=== PATIENT | male | born 1955 | race African-American/Black ===

== ENCOUNTER 2024-06-12 09:53 | Outpatient (CLI) | payer MEDICARE, MEDICAID, SELFPAY ==
[2024-06-12 10:49] LABS: Hematocrit 38.4 % (42.0-52.0); Hemoglobin 12.6 g/dL (14.0-18.0); Mean Corpuscular HGB Conc 32.8 g/dl (32-36); Mean Corpuscular Hemoglobin 27.4 pg (26-34); Mean Corpuscular Volume 83.5 fl (80-100); Mean Platelet Volume 9.8 fl (7.4-10.4); Platelet Count Result 323 k/mm3 (150-375); Red Cell Distribution Width 13.9 % (11.5-14.5); White Blood Count 10.5 K/mm3 (4.5-10.0)
[2024-06-12 10:52] LABS: Creatinine Urine 61.3 mg/dL; Total Protein Urine Random 38 mg/dL; Ur Ttl Prot Creatinine Ratio 0.62 mg/mg (0-0.20)
[2024-06-12 10:59] LABS: Alanine Aminotransferase 52 U/L (6-50); Albumin Level 4.5 g/dL (3.5-5.1); Alkaline Phosphatase 60 U/L (38-126); Anion Gap 10 mmol/L (4-12); Aspartate Amino Transferase 40 U/L (17-59); Bilirubin,Total 0.3 mg/dL (0.2-1.3); Blood Urea Nitrogen 25 mg/dL (9-20); Calcium 9.4 mg/dL (8.4-10.2); Carbon Dioxide 23 mmol/L (22-30); Chloride 103 mmol/L (98-107); Cholesterol 110 mg/dL (0-200); Estimated Glomerular Filt Rate 53; Glucose 173 mg/dL (65-110); HDL Direct 49 mg/dL; Phosphorus 3.3 mg/dL (2.5-4.5); Potassium 4.5 mmol/L (3.4-5.0); Sodium 136 mmol/L (137-145); Triglycerides 87 mg/dL (<150)
[2024-06-12 11:10] LABS: LDL Cholesterol Direct 37 mg/dL
[2024-06-12 11:30] LABS: Prostate Specific Antigen 6.9 ng/mL (< OR = 4.0)
== END 2024-06-12 09:54 | disposition home or self-care (01) ==
LOC: ANHLAB 10:01
PROVIDERS: PCP Family Medicine; Referring Provider Family Medicine; Visit Provider Internal Medicine Nephrology
DX: E11.22 Type 2 diabetes mellitus with diabetic chronic kidney disease (principal); I12.9 Hypertensive chronic kidney disease with stage 1 through stage 4 chronic kidney disease, or unspecified chronic kidney disease; N18.32 Chronic kidney disease, stage 3b; Z76.89 Persons encountering health services in other specified circumstances; Z12.5 Encounter for screening for malignant neoplasm of prostate; E78.5 Hyperlipidemia, unspecified
CPT/HCPCS: 36415; 80053; 80061; 82570; 84100; 84153; 84156; 85027; G0103

== ENCOUNTER 2024-09-06 06:44 | Outpatient (CLI) | payer MEDICARE, MEDICAID, SELFPAY ==
[2024-09-06 07:40] LABS: Albumin Level 4.4 g/dL (3.5-5.1); Anion Gap 10 mmol/L (4-12); Blood Urea Nitrogen 20 mg/dL (9-20); Carbon Dioxide 24 mmol/L (22-30); Chloride 100 mmol/L (98-107); Estimated Glomerular Filt Rate 58; Glucose 148 mg/dL (65-110); Phosphorus 3.3 mg/dL (2.5-4.5); Potassium 4.5 mmol/L (3.4-5.0); Sodium 134 mmol/L (137-145)
[2024-09-06 08:21] LABS: Parathyroid Intact 91.3 pg/mL (14.5-75.2)
[2024-09-06 08:27] LABS: Vitamin D 25 Hydroxy 37.8 ng/mL
[2024-09-06 09:04] LABS: Creatinine Urine 29.4 mg/dL; Total Protein Urine Random 40 mg/dL; Ur Ttl Prot Creatinine Ratio 1.36 mg/mg (0-0.20)
== END 2024-09-06 06:45 | disposition home or self-care (01) ==
PROVIDERS: PCP Family Medicine; Visit Provider Internal Medicine Nephrology
DX: I12.9 Hypertensive chronic kidney disease with stage 1 through stage 4 chronic kidney disease, or unspecified chronic kidney disease (principal); E11.22 Type 2 diabetes mellitus with diabetic chronic kidney disease; N18.32 Chronic kidney disease, stage 3b; N25.81 Secondary hyperparathyroidism of renal origin; E55.9 Vitamin D deficiency, unspecified
CPT/HCPCS: 36415; 80069; 82306; 82570; 83970; 84156

== ENCOUNTER 2024-10-15 09:46 | Emergency (ER) | payer MEDICARE, MEDICAID, SELFPAY ==
--- NOTE | ~2024-10-15 | XR_ITS ---
EXAMINATION: XR knee RT min 4V DATE: 10/15/2024 11:25 INDICATION: Distal right knee pain post fall TECHNIQUE: Anteroposterior, 2 oblique and crosstable lateral views of the right knee were obtained COMPARISON: None. FINDINGS: Status post right jpmrh-oim-srqi amputation with smoothly corticated osteotomy margins. Alignment is normal. No fracture. Joint spaces are relatively preserved on nonweightbearing imaging. Tiny marginal ossified at the proximal margin of the patella. Enthesophytes at the patellar insertion of the lee lar and distal quadriceps tendons. No joint effusion/layering lipohemarthrosis. Vascular calcificatio ns at the distal thigh and proximal calf. There is soft tissue swelling with subcutaneous edema at th e distal aspect of the stump. IMPRESSION: 1. Right dqqge-ccw-avhg amputation. No right knee joint effusion or acute osseous abnormality. Reviewed, dictated and finalized at location B. OR IMPRESSION: 1. Right eoivi-ray-njux amputation. No right knee joint effusion or acute osseo us abnormality.
[2024-10-15 09:58] VITALS: BP 158/75; PULSE 98; RESP 20; TEMP 36.7; O2SAT 100
--- NOTE | 2024-10-15 10:02 | ED_ITS ---
HPI - Fall General Chief Complaint: Fall Stated Complaint: fell, right leg pain Time Seen by Provider: 10/15/24 09:49 History of Present Illness HPI Narrative: Pt putting on prosthetic right leg and fell and landed on stump and now has pain to stump. Pt has firm area where he landed. Pt says tylenol is helping with pain. Related Data Home Medications ?Medication ?Instructions ?Recorded ?Confirmed ?Last Taken ?Type aspirin 81 mg tablet,delayed 81 mg PO DAILY 05/22/24 09/10/24 Unknown History release ferrous sulfate 325 mg (65 mg 325 mg PO DAILY 05/22/24 09/10/24 Unknown History iron) tablet multivitamin with minerals-folic 1 tablet PO DAILY 05/22/24 09/10/24 Unknown History acid 400 mcg-lycopene 370 mcg tablet (One-A-Day Men's 50 Plus) Allergies Allergy/AdvReac Type Severity Reaction Status Date / Time No Known Allergies Allergy Verified 10/15/24 09:57 Review of Systems Review of Systems: All systems reviewed & are unremarkable except as noted in HPI and below PMFSH Past Medical History Medical History Hyperlipidemia Anemia HTN (hypertension) Kidney disease Diabetes Asthma Surgical History Surgical History Hx of right BKA Family History Family History Other Unknown family medical history Social History Social History Smoking status: Never smoker Alcohol intake: never Substance use type: does not use Living arrangements: with family Spiritual care concerns: No Exam Const: General: healthy appearing and no acute distress Nutritional Appearance: well nourished Orientation/consciousness: patient oriented x3 Limitations: no limitations Neck: Neck: normal visual inspection Resp: Effort & Inspection: normal respiratory effort Auscultation: clear to auscultation bilaterally Cardio: Rate: regular rate Rhythm: regular rhythm GI: GI Palp: Yes Soft to palpation and No Tenderness to palpation present (GI) Auscultation: normal bowel sounds Skin: General skin exam: normal color Wounds: no wounds Neuro: General: patient oriented x3, moves all extremities, no focal motor deficits and CN's II-XI intact bilaterally Speech: normal speech Extrem: Other: small area of firness on stump seems like hematoma, no abscess or warmth. Psych: Mental Status: mental status grossly normal Affect: normal affect Attitude: cooperative Course Vital Signs Vital signs: Vital Signs Temperature 98.0 F 10/15/24 09:58 Pulse Rate 98 10/15/24 09:58 Respiratory Rate 20 10/15/24 09:58 Blood Pressure 158/75 H 10/15/24 09:58 Pulse Oximetry 100 10/15/24 09:58 Oxygen Delivery Room Air 10/15/24 09:58 Temperature 98.0 F 10/15/24 09:58 Pulse Rate 98 10/15/24 09:58 Respiratory Rate 20 10/15/24 09:58 Blood Pressure 158/75 H 10/15/24 09:58 Pulse Oximetry 100 10/15/24 09:58 Oxygen Delivery Room Air 10/15/24 09:58 MDM - Fall MDM Narrative Medical decision making narrative: pt fell and struck stump has swollen area that feels like a small hematoma but will get x ray to exclude fx. x rays neg. home on tylenol. Discharge Plan Discharge Clinical Impression: Hematoma Patient Disposition: Home, Self-Care Condition: Stable Instructions: Antibiotic Form, Hematoma (ED) Patient Language: East Timorese Prescriptions: No Action ketoconazole 2 % shampoo 1 applic topical 3XW Qty: 120 0RF ketoconazole 2 % cream 1 applic topical BID Qty: 60 0RF hydrocortisone 1 % cream 1 applic topical BID PRN (Reason: rash hand) Qty: 453.6 0RF ferrous sulfate 325 mg (65 mg iron) tablet 325 mg PO DAILY aspirin 81 mg tablet,delayed release (DR/EC) 81 mg PO DAILY One-A-Day Men's 50 Plus 400-370 mcg tablet 1 tablet PO DAILY metoprolol tartrate 25 mg tablet 25 mg PO DAILY Qty: 90 1RF Januvia 100 mg tablet 100 mg PO DAILY Qty: 90 1RF sodium,potassium,mag sulfates [Suprep Bowel Prep Kit] 17.5-3.13-1.6 gram recon soln See Rx Instructions PO .COMPLEX Qty: 354 0RF Rx Instructions: Take as directed per the written instructions that were mailed to you. atorvastatin 40 mg tablet 40 mg PO DAILY Qty: 90 1RF amlodipine 10 mg tablet 10 mg PO DAILY Qty: 90 1RF Follow-up/Referrals: Eran Amezquita MD [Primary Care Provider] -
--- OUTSIDE RECORDS SUMMARY | 2024-10-15 10:46 | XMS_ITS ---
Author Organization 1 OF George keene [facility] Address [address] [place] [address] Care Team Providers Care Wax Bleacher Name Role Phone Lakia Shore Primary Care Provider Rebeca Barrera Unavailable [phone] REASON FOR VISIT DFC (Diabetic foot care) Encounters Encounter Location Date Provider Diagnosis 1 OF George Marte [facility] [address] [place] [address] 04/25/2024 Rebeca Sparrow Onychogryphosis L60. 2 ; Type 2 diabetes mellitus with diabetic polyneuropathy, unspecified whether buttermilk drier operator insulin use E11.42 and Callus of [...] diabetes mellitus with diabetic polyneuropathy, unspecified whether buttermilk drier operator insulin use (ICD-10 - E11.42) 04/25/2024 Callus [...] tact office PRN with any concerns., Reason: Procedure Notes * Category Sub-Category Detail Notes PALLIATIVE FOOT CARE: Callus paring: (91458) Si ngle callus as noted above reduced with a sterile scalpel blade, Nail debride (32832): Debridement of fiv e or less mycotic and/or hypertrophic nails, utilizing manual and electric debridement the affected nails were reduced the nails in length and thickness with curettage of debris from nail margins performed as needed. Nail thickness reduced by:, 10% Progress Notes * Linda ROBBINSOB:1955 (68 yo M)Acc No.[id number]:04/25/2024 Progress Note Patient: Bradly DUFFY Provider: Jose Martin Sparrow DPM :1955 A ge:68 Y S ex:Male Date:04/25/2024 Address:[address] [place] [address] Pcp:Lakia Shore Subjective: * Chief Complaints: * 1 . DFC (Diabetic foot care). * HPI: M A assisting with visit:: HPI/Rooming: . ..... P [facility] reason for visit:: Diabetic Foot [...] diabetes mellitus with diabetic polyneuropathy, unspecified whether m[facility]p insulin use - E11.42 (Primary) 3 . C allus of foot - L84 Plan: * Treatment: * Procedures: P ALLIATIVE FOOT CARE:: Callus paring: ( 02762) Single callus as noted above reduced with a sterile scalpel blade,. Nail debride (21728): D ebridement of five or less mycotic and/or hypertrophic nails, utilizing manual and electric debridement the affected nails were reduced the nails in length and thickness with curettage of debris from nail margins performed as needed. Nail thickness reduced by:, 10%. * Procedure Codes: 1 1055 TRIM SKIN LESION, Modifiers: Q7 , 77454 DEBRIDE NAIL, 1-5, Modifiers: Q7 , 59 * Follow Up: 9 -10 weeks or contact office PRN with any concerns. * Images: * Electronic signature of Radha Sparrow DPM on 10/15/2024 at 10:46 AM PORTFOLIO ARCHITECT Sign off status: Pending * Provider: Jose Martin Sparrow DPM Date: 0 04/25/2024 Generated for Austin ng/Faroelg/eTransmitting on: 0 10/15/2024 10:46 AM PORTFOLIO ARCHITECT History and Physical Notes * HPI (History [...]
--- OUTSIDE RECORDS SUMMARY | 2024-10-15 10:46 | XMS_ITS ---
Author Organization 1 OF George keene [facility] Address [address] [place] [address] Care Team Providers Care Diploma Maker Name Role Phone Lakia Shore Primary Care Provider Rebeca Barrera Unavailable [phone] REASON FOR VISIT DFC (Diabetic foot care) Encounters Encounter Location Date Provider Diagnosis 1 [facility] [address] [place] [address] 07/10/2024 Rebeca Sparrow Onychogryphosis L60. 2 ; Type 2 diabetes mellitus with diabetic polyneuropathy, unspecified whether terminal operator insulin use E11.42 and Callus [...] diabetes mellitus with diabetic polyneuropathy, unspecified whether terminal operator insulin use (ICD-10 - E11.42) 07/10/2024 Callus [...] Detail Notes PALLIATIVE FOOT CARE: Callus paring: (65131) Si ngle callus as noted above reduced with a sterile scalpel blade, Nail debride (56083): Debridement of fiv e or less mycotic and/or hypertrophic nails, utilizing manual and electric debridement the affected nails were reduced the nails in length and thickness with curettage of debris from nail margins performed as needed. Nail thickness reduced by:, 10% Progress Notes * Linda ROBBINSOB:1955 (68 yo M)Acc No.[id number]:07/10/2024 Progress Note Patient: Bradly DUFFY Provider: Jose Martin Sparrow DPM :1955 A ge:68 Y S ex:Male Date:07/10/2024 Address:[address] [place] [address] Pcp:Lakia Shore Subjective: * Chief Complaints: * [...] diabetes mellitus with diabetic polyneuropathy, unspecified whether usp insulin use - E11.42 (Primary) 3 . C allus of foot - L84 Plan: * Treatment: * Procedures: P ALLIATIVE FOOT CARE:: Callus paring: ( 48827) Single callus as noted above reduced with a sterile scalpel blade,. Nail debride (61442): D ebridement of five or less mycotic and/or hypertrophic nails, utilizing manual and electric debridement the affected nails were reduced the nails in length and thickness with curettage of debris from nail margins performed as needed. Nail thickness reduced by:, 10%. * Procedure Codes: 1 1055 TRIM SKIN LESION, Modifiers: Q7 , 45242 DEBRIDE NAIL, 1-5, Modifiers: Q7 , 59 * Follow Up: 9 -10 weeks or contact office PRN with any concerns. * Images: * Electronic signature of Radha Sparrow DPM on 10/15/2024 at 10:46 AM BRANCH ACCOUNT MANAGER Sign off status: Pending * Provider: Jose Martin Sparrow DPM Date: 09/09/2023 Generated for Austin sprague/Faxing/eTransmitting on: 0 10/15/2024 10:46 AM BRANCH ACCOUNT MANAGER History and Physical Notes * HPI (History [...]
--- OUTSIDE RECORDS SUMMARY | 2024-10-15 10:46 | XMS_ITS | Clinical Summary ---
Author Organization [facility] Address [address] [place] [address] Phone Care Team Providers Care Supervisor Compressed Yeast Name Role Phone Lakia Shore MD Primary Care Provider Allergies No known active allergies Medications Medication Sig Dispensed Refills Start Date End Date Status amLODIPine (NORVASC) 10 MG tablet Take 10 mg by mouth 1 (one) time each day Active aspirin (ST NATALI) 81 MG EC tablet Take 81 mg by mouth 1 (one) time each day Active atorvastatin (LIPITOR) 40 MG tablet Take 40 mg by mouth every night Active brimonidine-timolol (COMBIGAN) 0.2-0.5 % ophthalmic solution Administer 1 drop into both eyes every 12 (twelve) hours Active ferrous sulfate 325 (65 Fe) MG EC tablet Take 325 mg by mouth 2 (two) times a day before meals Active hydroCHLOROthiazide (HYDRODIURIL) 25 MG tablet Take 25 mg by mouth 1 (one) time each day Active SITagliptin (JANUVIA) 100 MG tablet Take 100 mg by mouth 1 (one) time each day Active metoprolol tartrate (LOPRESSOR) 25 MG tablet Take 25 mg by mouth 2 (two) times a day Active Active Problems Problem Noted Date Diagnosed Date Type 2 diabetes mellitus with complication 01/19 Ulcer of toe 08/24/2022 Status post BKA 06/08/2022 Stage 3a chronic kidney disease 04/27/2022 Hyperkalemia 04/26/2022 Essential hypertension 04/26/2022 Resolved Problems Problem Noted Date Diagnosed Date Resolved Date Hypertensive renal disease 06/10/2022 0 01/19/2023 Anemia 04/26/2022 01/19/2023 Hyperlipidemia 04/26/2022 06/10/2022 Social History Tobacco Use Types Packs/Day Years Used Date Smoking Tobacco: Never Smokeless Tobacco: Never Tobacco Cessation:Counseling Given: Not Answered Alcohol Use Standard Drinks/Week Comments Never 0 (1 standard drink = 0.6 oz pur e alcohol) Sex and Gender Information Value Date Recorded Sex Assigned at Not on file Gender Identity Not on file Sexual Orientation Not on file Last Filed Vital Signs Vital Sign Reading Time Taken Comments Blood Pressure 129/71 09/19/2023 1:23 PM TOUR COORDINATOR Pulse 92 09/19/2023 1:23 PM TOUR COORDINATOR Temperature - - Respiratory Rate - - Oxygen Saturation - - Inhaled Oxygen Concentration - - Weight 85.3 kg (188 lb) 09/19/2023 1:23 PM TOUR COORDINATOR Height 172.7 cm (5' 8 ) 09/19/2023 1:23 PM TOUR COORDINATOR Body Mass Index 28.59 09/19/2023 1:23 PM TOUR COORDINATOR Plan of Treatment Health Maintenance Due Date Last Done Comments Pneumococcal PPSV23/PCV13 65 + Years / High and Highest Risk (1 of 4 - PCV) 11/16/1963 Diabetic Foot Exam 11/16/1967 Ophthalmology Exam 11/16/1967 Influenza Vaccine (#1) 2024 Care Teams Supervisor Compressed Yeast Relationship Specialty Start Date End Date Lakia Shore MD [address] [place] [address] PCP - General 08/24/22
--- OUTSIDE RECORDS SUMMARY | 2024-10-15 10:47 | XMS_ITS | Patient Health Record ---
Author Organization 1 OF George keene [facility] Address [address] [place] [address] Care Team Providers Care Reception Specialist Name Role Phone Lakia Shore Primary Care Provider Rebeca Barrera Unavailable [phone] Allergies No Known Allergies Reason For Referral No Information Medications Medication SIG (Take, Route, Fr equency, Duration) Notes Start Date End Date Status Metoprolol Succinate Active Atorvastatin Calcium Active Brimonidine Tartrate Active Januvia Active metFORMIN HCl Active amLODIPine Besylate Active Aspirin Active Social History Tobacco Use: Social History Observation Description Date Details (start date - stop date) Never Smoker NA - NA Tobacco Use/Smoking Question Answer Notes Are you a nonsmoker Problems Problem Type SNOMED Code ICD Code Onset Dates Problem Status W/U Status Risk Notes Problem 29420741 Gait instability (R26.81) Active confirmed Problem 966429052 Skin ulcer of toe of left foot with fat layer exposed (L97.522) Active confirmed Problem 39068506 Type 2 diabetes mellitus with diabetic polyneuropathy, unspecified whether half-way insulin use (E11.42) Active confirmed Vital Signs Height 68 in 05/01/2024 Weight 194 lbs 05/01/2024 BMI 29.49 kg/m2 05/01/2024 Encounters Encounter Location Date Provider Diagnosis 1 OF [facility] [address] [place] [address] 11/09/2023 Rebeca Sparrow Onychogryphosis L60. 2 ; Type 2 diabetes mellitus with diabetic polyneuropathy, unspecified whether half-way insulin use E11.42 and Callus of foot L84 1 OF [facility] [address] [place] [address] 12/12/2023 Rebeca Sparrow Type 2 diabetes arun itus with diabetic polyneuropathy, unspecified whether half-way insulin use E11.42 1 OF George Marte [facility] [address] [place] [address] 01/18/2024 Rebeca Gonsaleza Onychogryphosis L60. 2 ; Type 2 diabetes mellitus with diabetic polyneuropathy, unspecified whether continuous churn buttermaker insulin use E11.42 and Callus of foot L84 1 OF George Marte [facility] [address] [place] [address] 01/18/2024 Rebeca Gonsaleza Type 2 diabetes arun itus with diabetic polyneuropathy, unspecified whether half-way insulin use E11.42 1 OF [facility] [address] [place] [address] 05/01/2024 Rebeca Gonsaleza Onychogryphosis L60. 2 ; Type 2 diabetes mellitus with diabetic polyneuropathy, unspecified whether continuous churn buttermaker insulin use E11.42 and Callus of foot L84 1 OF George [facility] [address] [place] [address] 12/15/2023 Rebeca Sparrow 1 OF [facility] [address] [place] [address] 01/05/2024 Rebeca Gonsaleza Assessments Encounter Date Diagnosis (ICD Code) Assessment Notes Treatment Notes Treatment Clinical Notes Section Notes 11/09/2023 Onychogryphosis (ICD-10 - L60.2) Considering the associated comorbidities and physical exam findings today, this patient is at substantial risk of developing serious foot complications in the absence of regular and professional palliative foot care. 12/12/2023 Type 2 diabetes mellitus with diabetic polyneuropathy, unspecified whether continuous churn buttermaker insulin use (ICD-10 - E11.42) 01/18/2024 Onychogryphosis (ICD-10 - L60.2) Considering the associated comorbidities and physical exam findings today, this patient is at substantial risk of developing serious foot complications in the absence of regular and professional palliative foot care. 01/18/2024 Type 2 diabetes mellitus with diabetic polyneuropathy, unspecified whether continuous churn buttermaker insulin use (ICD-10 - E11.42) 05/01/2024 Onychogryphosis (ICD-10 - L60.2) Considering the associated comorbidities and physical exam findings today, this patient is at substantial risk of developing serious foot complications in the absence of regular and professional palliative foot care. 05/01/2024 Type 2 diabetes mellitus with diabetic polyneuropathy, unspecified whether half-way insulin use (ICD-10 - E11.42) 01/18/2024 Type 2 diabetes mellitus with diabetic polyneuropathy, unspecified whether half-way insulin use (ICD-10 - E11.42) 11/09/2023 Type 2 diabetes mellitus with diabetic polyneuropathy, unspecified whether half-way insulin use (ICD-10 - E11.42) 11/09/2023 Callus of foot (ICD-10 - L84) 01/18/2024 Callus of foot (ICD-10 - L84) 05/01/2024 Callus of foot (ICD-10 - L84) Plan Of Treatment No Information Insurance Providers Payer Name Payer Address Payer Phone Subscriber Number Group Number Insured Name Patient Relationship to Insured Coverage Start Date Coverage End Date [employer] [address] [address] [place] [address] [id number] Bradly Burnett Self - patient is the insured [facility] [address] [address] [place] [address] [id number] Bradly Burnett Self - patient is the insured Medical (General) History Medical History History ICD Code diabetes, high cholesterol, high blood p ressure, kidney disease Surgical History Surgery Date(Month/Year) right BKA
--- OUTSIDE RECORDS SUMMARY | 2024-10-15 10:47 | XMS_ITS | Encounter Summary ---
Author Organization [facility] Address [address] [place] [address] Care Team Providers Care Railway Signal Operator Name Role Phone None, Provider Primary Care Provider Lakia Falk MD Primary Care Provider Reason for Referral * Imaging (Routine) - Closed Specialty Diagnoses / Procedures Referred By Angelica worthington Referred To Contact RADIOLOGY Diagnoses CKD (chronic kidney disease), symptom management only Procedures US RETROPERITONEAL COMP US ABD COMPLETE Kristian Lunsford MD [address] [place] [address] Dr [address] [place] [address] Phone: tel: fax: Referral ID Status Reason Start Date Expiration Date Visits Re quested Visits Authorized [id number] Closed 05/11/2022 06/10/2023 1 1 * Imaging (Routine) - Closed Specialty Diagnoses / Procedures Referred By Angelica worthington Referred To Contact RADIOLOGY Diagnoses Essential hypertension, malignant Procedures USV ABD PEL OR RETRO DUPLEX COMP Kristian Lunsford MD [facility] [place] [address] Phone: tel: fax: Referral ID Status Reason Start Date Expiration Date Visits Re quested Visits Authorized [id number] Closed 05/11/2022 06/10/2023 1 1 Encounter Details Date Type Department Care Team (Late st Contact Info) Description 05/11/2022 Community Orders [facility] Kristian Lunsford MD [address] [place] [phone] Social History Tobacco Use Types Packs/Day Years Used Date Smoking Tobacco: Never Smokeless Tobacco: Never Alcohol Use Standard Drinks/Week Comments Never 0 (1 standard drink = 0.6 oz pur e alcohol) AUDIT-C Answer Date Recorded Q1: How often do you have a drink containing alc ohol? Never 11/19/2020 Average Number of Drinks Not on file 021 Frequency of Binge Drinking Not on file 03/2021 Sex and Gender Information Value Date Recorded Sex Assigned at Not on file Legal Sex Male 5:49 PM CDT Gender Identity Not on file Sexual Orientation Not on file COVID-19 Exposure Response Date Recorded In the last 10 days, have yo u been in contact with someone who was confirmed or suspected to have Coronavirus/COVID-19? No / Unsure 04/14/2022 10:23 AM CDT documented as of this encounter Functional Status * RETIRED Are you deaf or do you have serious difficulty hearing Answer Date of Assessment Author Status No 04/09/2022 3:28 PM CDT Activ e * RETIRED Are you blind or do you have serious difficulty seeing, even when wearing glasses? Answer Date of Assessment Author Status No 04/09/2022 3:00 PM CDT Activ e * Do you have serious difficulty walking or climbing stairs? Answer Date of Assessment Author Status No 04/09/2022 3:00 PM CDT Lakia Cesar RN Active * Do you have difficulty dressing or bathing? Answer Date of Assessment Author Status No 04/09/2022 3:00 PM CDT Lakia Cesar RN Active * Because of a physical, mental, or emotional condition, do you have difficulty doing errands alone such as visiting a doctor's office or shopping? Answer Date of Assessment Author Status No 04/09/2022 3:00 PM CDT Lakia Cesar RN Active documented as of this encounter Mental Status * Because of a physical, mental, or emotional condition, do you have serious difficulty concentrating, remembering, or making decisions? Answer Entry Date Author Status No 04/09/2022 3:00 PM CDT Lakia Cesar RN Active documented in this encounter Plan of Treatment Not on file documented as of this encounter Goals Goal Patient Goal Type Associated Problems Recent Progress Patient-Stated? Author Health - patient able to perform ADLs independently Lifestyle No Landy Escobar RN documented as of this encounter Results * USV ABD PEL OR RETRO DUPLEX COMP (06/09/2022 10:29 AM CDT) Anatomical Region Laterality Modality NA Vascular Ultraso und 06/09/2022 9:58 AM CDT Narrative 06/09/2022 6:55 PM CDT RENAL-MESENTERIC DUPLEX IMAGING VASCULAR LAB Pat.Name: BRADLY ROBBINS Pat.ID: [id number] St.Date: 06/09/2022 Exam Time: 9:58:00 AM Study Type:ZACH VS Renal Mesenteric Duplex BONILLA Age: 6 1955,66Y Sex: MALE Sonogrphr: JIN Gutierrez Pat. Stat.:Outpatient History / Clinical: HTN; PMH- asa, HTN, HLD, DM, RT BKA, no prior Procedures: Raya scale, Color Doppler imaging, Doppler Spectral Analysis Race: B ++++++++++++++++++++++++++++++++++++ SUMMARY: ++++++++++++++++++++++++++++++++++++ Laurie Renal artery Stenosis Criteria: < 60% = PSV >180 with RAR <3.5; >60% = PSV >180 with RAR >3.5; (RI >.80 = abnormal, kidney dz.) Right renal artery no evident narrowing, normal velocity, with RAR 1.01 . RI 0.9, with kidney length within normal range. Left renal artery no evident narrowing, limited views, normal velocity, with RAR 0.454 . RI 0.81, with kidney length within normal range. Renal veins are patent bilaterally. Aorta limited views, no evident narrowing, bi-triphasic. Low, <40 degree, Doppler measurement angle, which significantly decreases the velocity calculations obtained. CONCLUSION: Right renal artery is normal with Renal/Aorta Ratio of 1.01 . Kidney size, Resistive Index suggests parenchymal disease.. Left renal artery is normal with Renal/Aorta Ratio of 0.454 . Kidney size, Resistive Index suggests good kidney preservation. ++++++++++++++++++++++++++++++++++++ FINDINGS: ++++++++++++++++++++++++++++++++++++ ++++++++++++++++++++++++++++++++++++ MEASUREMENTS: ++++++++++++++++++++++++++++++++++++ AO-ILIAC Left Kidney Kidney Size 12.1 cm Right Kidney Kidney Size 12.3 cm RENAL ART Right Origin Origin PSV 99.1 cm/s Right Prox Prox PSV 96 cm/s Right Mid Mid PSV 124 cm/s Right Distal Distal PSV 88.1 cm/s Right RAR RAR PSV 1.01 Left Origin Origin PSV 55.9 cm/s Left Prox Prox PSV 51.5 cm/s Left Mid Mid PSV 52.8 cm/s Left Distal Distal PSV 54 cm/s Left RAR RAR PSV 0.454 PARENCHYMA Left Lower Pole Segmental Artery Lower Pole Segm 0.8 Left Upper Pole Segmental Artery Upper Pole Segm 0.81 Right Lower Pole Segmental Artery Lower Pole Segm 0.9 Right Upper Pole Segmental Artery Upper Pole Segm 0.83 DOPPLER Supra AO Supra AO PSV 123 cm/s Signed 06/09/2022 06:55 PM Tony Kruger M.D. Procedure Note Tony Kruger MD - 06/09/2022 RENAL-MESENTERIC DUPLEX IMAGING VASCULAR LAB Pat.Name: BRADLY ROBBINS Pat.ID: [id number] .Date: 06/09/2022 Exam Time: 9:58:00 AM Study Type:ZACH VS Renal Mesenteric Duplex BONILLA Age: 6 1955,66Y Sex: MALE Sonogrphr: JIN Gutierrez Pat. Stat.:Outpatient History / Clinical: HTN; PMH- asa, HTN, HLD, DM, RT BKA, no prior Procedures: Raya scale, Color Doppler imaging, Doppler Spectral Analysis Race: B ++++++++++++++++++++++++++++++++++++ SUMMARY: ++++++++++++++++++++++++++++++++++++ Laurie Renal artery Stenosis Criteria: < 60% = PSV >180 with RAR <3.5; >60% = PSV >180 with RAR >3.5; (RI >.80 = abnormal, kidney dz.) Right renal artery no evident narrowing, normal velocity, with RAR 1.01 . RI 0.9, with kidney length within normal range. Left renal artery no evident narrowing, limited views, normal velocity, with RAR 0.454 . RI 0.81, with kidney length within normal range. Renal veins are patent bilaterally. Aorta limited views, no evident narrowing, bi-triphasic. Low, <40 degree, Doppler measurement angle, which significantly decreases the velocity calculations obtained. CONCLUSION: Right renal artery is normal with Renal/Aorta Ratio of 1.01 . Kidney size, Resistive Index suggests parenchymal disease.. Left renal artery is normal with Renal/Aorta Ratio of 0.454 . Kidney size, Resistive Index suggests good kidney preservation. ++++++++++++++++++++++++++++++++++++ FINDINGS: ++++++++++++++++++++++++++++++++++++ ++++++++++++++++++++++++++++++++++++ MEASUREMENTS: ++++++++++++++++++++++++++++++++++++ AO-ILIAC Left Kidney Kidney Size 12.1 cm Right Kidney Kidney Size 12.3 cm RENAL ART Right Origin Origin PSV 99.1 cm/s Right Prox Prox PSV 96 cm/s Right Mid Mid PSV 124 cm/s Right Distal Distal PSV 88.1 cm/s Right RAR RAR PSV 1.01 Left Origin Origin PSV 55.9 cm/s Left Prox Prox PSV 51.5 cm/s Left Mid Mid PSV 52.8 cm/s Left Distal Distal PSV 54 cm/s Left RAR RAR PSV 0.454 PARENCHYMA Left Lower Pole Segmental Artery Lower Pole Segm 0.8 Left Upper Pole Segmental Artery Upper Pole Segm 0.81 Right Lower Pole Segmental Artery Lower Pole Segm 0.9 Right Upper Pole Segmental Artery Upper Pole Segm 0.83 DOPPLER Supra AO Supra AO PSV 123 cm/s Signed 06/09/2022 06:55 PM Tony Kruger M.D. us Kristian Lunsford MD US VASC Final Res ult * US RETROPERITONEAL COMP (06/09/2022 9:57 AM CDT) Anatomical Region Laterality Modality Abdomen Ultrasound 06/09/2022 1:50 PM CDT Impressions 06/09/2022 1:55 PM CDT IMPRESSION: 1. Mildly hyperechoic kidneys. 2. Right kidney findings likely representing cysts. Referred By: KRISTIAN LUNSFORD Interpreted By: Dimas Travis MD, 06/09/2022 1:50 PM Narrative 06/09/2022 1:55 PM CDT Exam: Ultrasound retroperitoneal complete No comparison INDICATION: Chronic kidney disease. TECHNIQUE: Grayscale and color Doppler imaging FINDINGS: The right kidney measures 10.3 cm in length and the left 10.1 cm. Normal cortical thickness bilaterally. Mild diffuse increased echogenicity within both kidneys likely represents medical renal disease. No obstruction. Blood flow shown to the kidneys with Doppler. On the right side, there are at least 2 hypoechoic areas present. The largest measures about 1.6 cm. Appearance is suggestive of cysts. No posterior acoustic enhancement is demonstrated, however. With the given history, there are probably imaging studies elsewhere which have described these findings. Normal urinary bladder. Both ureteral jets are visualized with Doppler. Procedure Note Dimas Travis MD - 06/09/2022 Exam: Ultrasound retroperitoneal complete No comparison INDICATION: Chronic kidney disease. TECHNIQUE: Grayscale and color Doppler imaging FINDINGS: The right kidney measures 10.3 cm in length and the left 10.1cm. Normal cortical thickness bilaterally. Mild diffuse increasedechogenicity within both kidneys likely represents medical renal disease.No obstruction. Blood flow shown to the kidneys with Doppler. On the right side, there are at least 2 hypoechoic areas present. Thelargest measures about 1.6 cm. Appearance is suggestive of cysts. Noposterior acoustic enhancement is demonstrated, however. With the givenhistory, there are probably imaging studies elsewhere which have describedthese findings. Normal urinary bladder. Both ureteral jets are visualized with Doppler. IMPRESSION: 1. Mildly hyperechoic kidneys. 2. Right kidney findings likely representing cysts. Referred By: KRISTIAN LUNSFORD Interpreted By: Dimas Travis MD, 06/09/2022 1:50 PM us Kristian Lunsford MD ULTRASOUND Final Res ult documented in this encounter Visit Diagnoses Diagnosis CKD (chronic kidney disease), symptom management only- Primary Chronic kidney disease, unspecified Essential hypertension, malignant CKD (chronic kidney disease), symptom management only Chronic kidney disease, unspecified Essential hypertension, malignant documented in this encounter Care Teams Railway Signal Operator Relationship Specialty Start Date End Date None, Provider, PCP - General 11/16/20 09/04/22 Lakia Shore MD [address] [facility] [address] [place] [address] PCP - General FAMILY PRACTICE 09/05/22 documented as of this encounter
--- OUTSIDE RECORDS SUMMARY | 2024-10-15 10:47 | XMS_ITS | Clinical Summary ---
Author Organization [facility] Address [address] [place] [address] Care Team Providers Care Senior Ui Software Engineer Name Role Phone Lakia Shoer MD Primary Care Provider Allergies No known active allergies Medications amLODIPine 10 MG tabletIndication s:altered blood pressure Take 10 mg by mouth daily. Indications: altered blood pressure Active atorvastatin 40 MG tabletIndication s:elevated cholesterol Take 40 mg by mouth daily. Indications: elevated cholesterol Active ferrous sulfate, 65 mg elemental, 325 (65 FE) MG tabletIndication s:anemia Take 325 mg by mouth 2 (two) times a day. Indications: anemia Active metoprolol tartrate 25 MG tabletIndication s:altered blood pressure Take by mouth 2 (two) times daily. Indications: altered blood pressure Active brimonidine-genevieve lol (COMBIGAN) 0.2-0.5 % ophthalmic solutionIndicati ons:glaucoma Place 1 drop into both eyes 2 (two) times daily. Indications: glaucoma 2 Active JANUVIA 100 MG tabletIndication s:diabetes Take 100 mg by mouth daily. Indications: diabetes 2 Active aspirin EC (ASPIRIN EC) 81 MG tabletIndication s:heart health Take 81 mg by mouth 2 (two) times a day. Indications: heart health Active Active Problems Problem Noted Date Diagnosed Date Hyperkalemia 04/09/2022 Social History Tobacco Use Types Packs/Day Years Used Date Smoking Tobacco: Never Smokeless Tobacco: Never Alcohol Use Standard Drinks/Week Comments Never 0 (1 standard drink = 0.6 oz pur e alcohol) OASIS D0700: Social Isolation Answer Da te Recorded Frequency of experiencing loneliness or isolatio n Never 12/02/2022 OASIS A1250: Transportation Answer Date Recorded Lack of Transportation (Medical) No 12/02/2022 Lack of Transportation (Non-Medical) No 12/02/2022 Patient Unable or Declines to Respond No 12/02/2022 OASIS B1300: Health Literacy Answer Trey e Recorded Frequency of needing help to read materials from doctor or pharmacy Never 12/02/2022 AUDIT-C Answer Date Recorded Q1: How often [...] Sign Reading Time Taken Comments Blood Pressure 124/78 12/02/2022 10:54 AM CDT Pulse 76 12/02/2022 10:54 AM CDT Temperature 36.5 C (97.7 F) 12/02/2022 10:54 AM CDT Respiratory Rate 18 12/02/2022 10:54 AM CDT Oxygen Saturation 99% 12/02/2022 10:54 AM CDT Inhaled Oxygen Concentration - - Weight 52.2 kg (115 lb) 04/09/2022 3:00 PM CDT Height 172.7 cm (5' 8 ) 04/09/2022 3:00 PM CDT Body Mass Index 17.49 04/09/2022 3:00 PM CDT Plan of Treatment Health Maintenance Due Date Last Done Comments Kidney Health Evaluation 1955 Diabetes: Retinopathy Eye Exam 11/16/1975 Hepatitis C 11/16/1975 Zoster Vaccines (1 of 2) 11/16/2007 RSV Immunization or 60+ Years (1 - Risk 60-74 years 1-dose series) 2017 Pneumococcal Vaccine: 65+ Years (2 of 2 - PCV) 07/25/2020 07/25/2019 Annual Medicare Wellness Visit 2022 Lipid Panel 12/22/2023 12/21/2022 COVID-19 Vaccine ( season) 2024 01/22/2021, 12/25/2020 Influenza Adult (#1) 2024 06/28/2021, 05/15/2020, 07/25/2019, Additional history exists Hemoglobin A1C 08/15/2024 02/13/2024, 08/16, 12/21/2022, Additional history exists DTaP, Tdap and Td Vaccines (2 - Td or Tdap) 07/03/2027 07/03/2017 Colorectal Cancer Screening Colonoscopy (10 Years) 11/19/2030 11/19/2020, 11/19/2020 Meningococcal B Vaccine Aged Out No l onger eligible based on patient's age to complete this topic Meningococcal Vaccine Aged Out No fanta ayleen eligible based on patient's age to complete this topic RSV Immunizations Under 20 Months Aged Out No longer eligible based on patient's age to complete this topic Goals Goal Patient Goal Type Associated Problems Recent Progress Patient-Stated? Author Health - patient able to perform ADLs independently Lifestyle Landy Shah product handler Procedure Name Priority Date/Time Associated Diagnosis Comments HEMOGLOBIN, GLYCOSYLATED Routine 02/13/2024 6:29 AM CDT Stage 3b chronic kidney disease ([facility] HHS[facility]HCC) Type 2 diabetes mellitus with diabetic nephropathy ([facility] HHS/HCC) Essential hypertension, benign LIPID PANEL Routine 12/21/2022 7:30 AM CDT Stage 3a chronic kidney disease ([facility] HHS/HCC) Diabetic nephropathies ([facility] HHS/HCC) COLONOSCOPY Routine 11/19/2020 1:17 PM CDT from Last 3 Months or Most Recently Relevant to Health Maintenance Results * (ABNORMAL) HEMOGLOBIN, GLYCOSYLATED (02/13/2024 6:29 AM CDT) HGB A1C 7.8(H) <5.7 % 02/13/2024 10:37 AM CDT [facility] Comment: ADA GUIDELINES 2010 5.7 TO 6.4% INCREASED RISK OF DIABETES > OR = 6.5% CONSISTENT WITH DIABETES ESTIMATED AVG GLUCOSE 177 mg/dL 02/13/2024 10:37 AM CDT [facility] 02/13/2024 6:29 AM CDT Kristian Lunsford MD LABORATORY Final Res ult [facility] [address] [place] [address], * LIPID PANEL (12/21/2022 7:30 AM CDT) CHOLESTEROL 108 <200 MG/DL 12/21/2022 8:12 AM CDT [facility] TRIGLYCERIDES 85 <150 MG/DL 12/21/2022 8:12 AM CDT [facility] HDL 55 >40.0 MG/DL 12/21/2022 8:12 AM CDT [facility] LDL (CALCULATED) 36 <100 MG/DL 12/22/19 23 8:12 AM CDT [facility] NON HDL CHOLESTEROL 53 <130 MG/DL 12/21 8:12 AM CDT [facility] CHOL/HDL RATIO 2.0 0.0 - 4.5 12/21/2022 8:12 AM CDT [facility] VLDL CALCULATION 17 5 - 55 MG/DL 12/21/2022 8:12 AM CDT [facility] LIPID INTERPRETATION 12/21/2022 8:12 AM CDT [facility] Comment: NIH CONCENSUS REPORT RECOMMENDATIONS: ADULT CHILD LOW RISK: CHOLESTEROL <200 <170 TRIGLYCERIDE <150 --- HDL >=60 --- LDL <100 <110 BORDERLINE: CHOLESTEROL 200-239 170-199 TRIGLYCERIDE 150-199 --- HDL 40-59 --- LDL 100-159 110-129 HIGH RISK: CHOLESTEROL >=240 >=200 TRIGLYCERIDE >=200 --- HDL <40 --- LDL >=160 >=130 12/21/2022 7:30 AM CDT Kristian Lunsford MD LABORATORY Final Res ult [facility] [address] [place] [address], * Colonoscopy (11/19/2020 1:17 PM CDT) Narrative Procedure Note Nicole Alvarado MD - 11/19/2020 1:17 PM CDT NICOLE ALVARADO MD, FACG, FACP COLONOSCOPY and EGD 11-19-2020 COLONOSCOPY INDICATION: Iron deficiency anemia. POST-OP: One tiny polyp removed. PREP: Good. SEDATION: Per Anesthesia With the patient in the left lateral decubitus position, the [id number] endoscope was introduced into the rectum and advanced easily tothe Terminal Ileum. Careful inspection of the mucosa was made uponinsertion and withdrawal of the endoscope. FINDINGS: Terminal ileum: distal 5 cm normal. Cecum, Ascending colon, Transversecolon, Sigmoid colon and Rectum including retroflexion normal. Descending colon: 5 mm sessile polyp removed with cold biopsy forcepswithout bleed. No masses, AVMs, colitis or diverticulosis seen. No complications, blood loss or implants. EGD INDICATION: Iron deficiency anemia. POST-OP: Chronic, non-erosive gastritis. Gastric biopsies done. With the patient in the left lateral decubitus position, the [id number] upper endoscope was used to easily intubate the esophagus andadvanced to the third duodenum. Careful inspection of the mucosa was madeupon insertion and withdrawal of the endoscope with retroflexion in thestomach. Findings: Esophagus: SC Jx @ 40 cm. The esophagus is normal. No esophagitis,stricture, mass or Velasquez's. Stomach: Fundus, body and antrum normal. No ulceration, erosion,inflammation, AVM or malignancy. Duodenum: Normal in the bulb, second and third duodenum. Labs: 09-18-2020 Hct 35. MCV 86. Cr 1.6. TTG 1 (negative for C. Sprue) [id number], folate 10, FT4 0.9 Ferritin 89, Fe75, TIBC 270, %sat 28. Hgb electrophoresis normal. Retic1.8. ASSESSMENT AND PLAN: A. Iron deficiency anemia: - Labs most consistent with AOCD - Primary to consider checking Epo level with decreased renal fx; repleteif low B. One polyp removed: if adenomatous repeat colonoscopy in 5 yearsotherwise screening colonoscopy in 10 years. Thank you for allowing me to care for your patient. He will follow-up withDr. Palacios as needed. Nicole Alvarado M.D. Cc: Dr. Lynn Palacios Nicole Alvarado MD GI PROCEDURE ORDERABLES Fin al Result from Last 3 Months or Most Recently Relevant to Health Maintenance Insurance MEDICAID [facility] Advance Directives Documents on File Type Date Recorded Patient Ticketing Agent Expl anation Advance Directives and Livin g Will 05/23/2014 05/30/2014 [facility] * Full Code (Latest Code Status on File) Date Activated Date Inactivated Comments 11/11/2022 12:30 PM * Full Code Date Activated Date Inactivated Comments 07/12/2022 10:18 AM 11/11/2022 12:30 PM * Full Code Date Activated Date Inactivated Comments 04/09/2022 4:08 AM 04/10/2022 7:10 PM Care Teams Senior Ui Software Engineer Relationship Specialty Start Date End Date Lakia Shore MD 3 [facility] [address] [place], [place] [address] PCP - General FAMILY PRACTICE 09/05/22
--- OUTSIDE RECORDS SUMMARY | 2024-10-15 10:47 | XMS_ITS ---
Author Organization 1 OF [facility] Address [address] [place] [address] Care Team Providers Care Technical Services Consultant Name Role Phone Lakia Shore Primary Care Provider Rebeca Barrera Unavailable [phone] REASON FOR VISIT DFC (Diabetic foot care) Medications Medication SIG (Take, Route, Fr equency, Duration) Notes Start Date End Date Status Metoprolol Succinate Active Atorvastatin Calcium Active Brimonidine Tartrate Active amLODIPine Besylate Active Aspirin Active Januvia Active metFORMIN HCl Active Vital Signs Height 68 in 05/01/2024 Weight 194 lbs 05/01/2024 BMI 29.49 kg/m2 05/01/2024 Encounters Encounter Location Date Provider Diagnosis 1 OF [facility] [address] [place] [address] 05/01/2024 Rebeca Sparrow Onychogryphosis L60. 2 ; Type 2 diabetes mellitus with diabetic polyneuropathy, unspecified whether custodial insulin use E11.42 and Callus of foot L84 Assessments Encounter Date Diagnosis (ICD Code) Assessment Notes Treatment Notes Treatment Clinical Notes Section Notes 05/01/2024 Onychogryphosis (ICD-10 - L60.2) Considering the associated comorbidities and physical exam findings today, this patient is at substantial risk of developing serious foot complications in the absence of regular and professional palliative foot care. 05/01/2024 Type 2 diabetes mellitus with diabetic polyneuropathy, unspecified whether custodial insulin use (ICD-10 - E11.42) 05/01/2024 Callus of foot (ICD-10 - L84) [...] Detail Notes PALLIATIVE FOOT CARE: Callus paring: (15122) Si ngle callus as noted above reduced with a sterile scalpel blade, Nail debride (55637): Debridement of fiv e or less mycotic and/or hypertrophic nails, utilizing manual and electric debridement the affected nails were reduced the nails in length and thickness with curettage of debris from nail margins performed as needed. Nail thickness reduced by:, 10% Progress Notes * ROSENDO HaiNikkiOB:1955 (68 yo M)Acc No.[id number]:05/01/2024 Progress Note Patient: Bradly DUFFY Provider: Jose Martin Sparrow DPM :1955 A ge:68 Y S ex:Male Date:05/01/2024 Address:[address] [place], [place] [id number] Pcp:Lakia Shore Subjective: * Chief Complaints: * D FC (Diabetic foot care) * HPI: P rimary reason for visit:: Diabetic Foot Care: 8 6 y/o diabetic male RTO for diabetic foot care. Patient reports no acute issues with nails or calluses today. Reports last HA1c of 7 .6. * ROS: * MULTI-SYSTEM REVIEW:: Nausea, fever or chillls d enies. C urrently dealing with infection, flu or open wound: d enies. A ny change in medications since last visit? d enies. A ny changes in medical history/hospitalizations? d enies. * Medical History: * Surgical History: r ight BKA * Hospitalization/Major Diagno stic Procedure: N o Hospitalization History. * Medications: T akingMetoprolol Succinate metFORMIN HCl Januvia Brimonidine Tartrate Atorvastatin Calcium Aspirin amLODIPine Besylate Medication List reviewed and reconciled with the patientTaking Metoprolol Succinate Taking metFORMIN HCl Taking Januvia Taking Brimonidine Tartrate Taking Atorvastatin Calcium Taking Aspirin Taking amLODIPine Besylate Medication List reviewed and reconciled with the patient * Allergies: n o[Allergies Verified] Objective: * Vitals: W t:194lbs, Wt-k kg, Ht: 68 in, BMI:29.49Index. * Examination: G eneral Examination: Constitutional / Appearance: N o acute distress , Well nourished, Appropriate personal hygiene. Mental status: C ooperative, Oriented to person, place and time, Mood and affect: normal, Judgement and intellect: normal with appropriate response to questions. Ambulatory assistive device: c ane. Shoes today: d iabetic shoes. L ower Extremity VASCULAR: : Pulses: L [...] diabetes mellitus with diabetic polyneuropathy, unspecified whether process controller insulin use - E11.42 (Primary) 3 . C allus of foot - L84 Plan: * Treatment: * Procedures: P ALLIATIVE FOOT CARE:: Callus paring: ( 06218) Single callus as noted above reduced with a sterile scalpel blade,. Nail debride (77829): D ebridement of five or less mycotic and/or hypertrophic nails, utilizing manual and electric debridement the affected nails were reduced the nails in length and thickness with curettage of debris from nail margins performed as needed. Nail thickness reduced by:, 10%. * Procedure Codes: 1 1055 TRIM SKIN LESION, Modifiers: Q7 29320 DEBRIDE NAIL, 1-5, Modifiers: Q7 , 59 * Follow Up: 9 -10 weeks or contact office PRN with any concerns. * Images: * Sign off status: Completed true * Provider: Jose Martin Sparrow DPM Date: 0 05/01/2024 Generated for Austin sprague/Baljeet/Margaux on: 0 10/15/2024 10:46 AM TITLE I DIRECTOR History and Physical Notes * HPI (History of Present Illness) Category Sub-Category Detail Notes Category Not es Primary reason for visit: Diabetic Foot Care: 68 y/o diabetic male RTO for diabetic foot care. Patient reports no acute issues with nails or calluses today. Reports last HA1c of 7.6 Examination Category Sub-Category Detail Notes Category Not es General Examination Mental status: Cooperative, Oriented to person, place and time, Mood and affect: normal, Judgement and intellect: normal with appropriate response to questions Shoes today: diabetic shoes Ambulatory assistive device: cane Constitutional / Appearance: [...]
--- OUTSIDE RECORDS SUMMARY | 2024-10-15 11:17 | XMS_ITS | Encounter Summary ---
Author Organization [facility] Address [address] [place] [address] Care Team Providers Care Bill Peddler Name Role Phone None, Provider Primary Care Provider Lakia Falk MD Primary Care Provider Reason for Referral * Imaging (Routine) - Closed Specialty Diagnoses / Procedures Referred By Angelica worthington Referred To Contact RADIOLOGY Diagnoses CKD (chronic kidney disease), symptom management only Procedures US RETROPERITONEAL COMP US ABD COMPLETE Kristian Lunsford MD [address] [place] [address] Dr Vanegas [address] [place] [address] Phone: tel: fax: Referral ID Status Reason Start Date Expiration Date Visits Re quested Visits Authorized [id number] Closed 05/11/2022 06/10/2023 1 1 * Imaging (Routine) - Closed Specialty Diagnoses / Procedures Referred By Angelica worthington Referred To Contact RADIOLOGY Diagnoses Essential hypertension, malignant Procedures USV ABD PEL OR RETRO DUPLEX COMP Kristian Lunsford MD [facility] [facility] [place] [address] Phone: tel: fax: Referral ID Status Reason Start Date Expiration Date Visits Re quested Visits Authorized [id number] Closed 05/11/2022 06/10/2023 1 1 Encounter Details Date Type Department Care Team (Late st Contact Info) Description 05/11/2022 Community Orders [facility] EPICCARE LINK Kristian Lunsford MD [address] [facility] [place] [phone] Social History Tobacco Use Types Packs/Day Years [...] IMAGING VASCULAR LAB Pat.Name: BRADLY ROBBINS Pat.ID: [id number] St.Date: 06/09/2022 Exam Time: 9:58:00 AM Study [...] IMAGING VASCULAR LAB Pat.Name: BRADLY ROBBINS Pat.ID: [id number] .Date: 06/09/2022 Exam Time: 9:58:00 AM Study [...] malignant documented in this encounter Care Teams Bill Peddler Relationship Specialty Start Date End Date None, Provider, PCP - General 11/16/20 09/04/22 Lakia Shore MD 3 [facility] [address] [place] [id number] PCP - General FAMILY PRACTICE 09/05/22 documented as of this encounter
--- OUTSIDE RECORDS SUMMARY | 2024-10-15 11:17 | XMS_ITS | Clinical Summary ---
Author Organization [facility] Address [address] [place] [address] Phone Care Team Providers Care Bread Slicer Machine Name Role Phone Lakia Shore MD Primary [...] Comments Blood Pressure 129/71 09/19/2023 1:23 PM BUILDING PRESSURE WASHER Pulse 92 09/19/2023 1:23 PM BUILDING PRESSURE WASHER Temperature - - Respiratory Rate - - Oxygen Saturation - - Inhaled Oxygen Concentration - - Weight 85.3 kg (188 lb) 09/19/2023 1:23 PM BUILDING PRESSURE WASHER Height 172.7 cm (5' 8 ) 09/19/2023 1:23 PM BUILDING PRESSURE WASHER Body Mass Index 28.59 09/19/2023 1:23 PM BUILDING PRESSURE WASHER Plan of Treatment Health Maintenance Due Date Last Done Comments Pneumococcal PPSV23/PCV13 65 + Years / High and Highest Risk (1 of 4 - PCV) 11/16/1963 Diabetic Foot Exam 11/16/1967 Ophthalmology Exam 11/16/1967 Influenza Vaccine (#1) 2024 Care Teams Bread Slicer Machine Relationship Specialty Start Date End Date Lakia Shore MD [address] [place] [address] PCP - General 08/24/22
--- OUTSIDE RECORDS SUMMARY | 2024-10-15 11:17 | XMS_ITS | Clinical Summary ---
Author Organization [facility] Address [address] [place] [address] Care Team Providers Care Door Captain Name Role Phone Lakia Shore MD Primary [...] to perform ADLs independently Lifestyle Landy Shah senior recruitment consultant Procedure Name Priority Date/Time Associated Diagnosis Comments HEMOGLOBIN, GLYCOSYLATED Routine 02/13/2024 6:29 AM CDT Stage 3b chronic kidney disease ([facility]HCC) Type 2 diabetes mellitus with diabetic nephropathy ([facility]HCC) Essential hypertension, benign LIPID PANEL Routine 12/21/2022 7:30 AM CDT Stage 3a chronic kidney disease ([facility]/HCC) Diabetic nephropathies ([facility]HCC) COLONOSCOPY Routine 11/19/2020 1:17 PM CDT from Last 3 Months or Most Recently Relevant to Health Maintenance Results * (ABNORMAL) HEMOGLOBIN, GLYCOSYLATED (02/13/2024 6:29 AM CDT) HGB A1C 7.8(H) <5.7 % 02/13/2024 10:37 AM CDT [facility] Comment: ADA GUIDELINES 2010 5.7 TO 6.4% INCREASED RISK OF DIABETES > OR = 6.5% CONSISTENT WITH DIABETES ESTIMATED AVG GLUCOSE 177 mg/dL 02/13/2024 10:37 AM CDT [facility] 02/13/2024 6:29 AM CDT Kristian Lunsford MD LABORATORY Final Res ult [facility] [address] [place] [address], * LIPID PANEL (12/21/2022 7:30 AM CDT) CHOLESTEROL 108 <200 MG/DL 12/21/2022 8:12 AM CDT [facility] TRIGLYCERIDES 85 <150 MG/DL 12/21/2022 8:12 AM CDT [facility] HDL 55 >40.0 MG/DL 12/21/2022 8:12 AM CDT [facility] LDL (CALCULATED) 36 <100 MG/DL 12/22/19 23 8:12 AM CDT [facility] NON HDL CHOLESTEROL 53 <130 MG/DL 12/21 8:12 AM CDT [facility] CHOL/HDL RATIO 2.0 0.0 - 4.5 12/21/2022 8:12 AM CDT [facility] VLDL CALCULATION 17 5 - 55 MG/DL 12/21/2022 8:12 AM CDT [facility] LIPID INTERPRETATION 12/21/2022 8:12 AM CDT [facility] Comment: NIH CONCENSUS REPORT RECOMMENDATIONS: ADULT CHILD LOW RISK: CHOLESTEROL <200 <170 TRIGLYCERIDE <150 --- HDL >=60 --- LDL <100 <110 BORDERLINE: CHOLESTEROL 200-239 170-199 TRIGLYCERIDE 150-199 --- HDL 40-59 --- LDL 100-159 110-129 HIGH RISK: CHOLESTEROL >=240 >=200 TRIGLYCERIDE >=200 --- HDL <40 --- LDL >=160 >=130 12/21/2022 7:30 AM CDT Kristian Lunsford MD LABORATORY Final Res ult [facility] [address] [place] [address], * Colonoscopy (11/19/2020 1:17 PM CDT) Narrative Procedure Note Nicole Alvarado MD - 11/19/2020 1:17 PM CDT NICOLE ALVARADO MD, FACG, FACP COLONOSCOPY and EGD 11-19-2020 COLONOSCOPY INDICATION: Iron deficiency anemia. POST-OP: One tiny polyp removed. PREP: Good. SEDATION: Per Anesthesia With the patient in the left lateral decubitus position, the [id number] endoscope was introduced into the rectum and [...] 1.6. TTG 1 (negative for C. Sprue) [id number], folate 10, FT4 0.9 Ferritin 89, Fe75, [...] needed. Nicole Alvarado M.D. Cc: Dr. Lynn Palaicos Nicole Alvarado MD GI PROCEDURE ORDERABLES Fin al Result from Last 3 Months or Most Recently Relevant to Health Maintenance Insurance MEDICAID [facility] Advance Directives Documents on File Type Date Recorded Patient Emergency Department Manager Expl anation Advance Directives and Livin g Will 05/23/2014 05/30/2014 [facility] * Full Code (Latest Code Status on File) Date Activated Date Inactivated Comments 11/11/2022 12:30 PM * Full Code Date Activated Date Inactivated Comments 07/12/2022 10:18 AM 11/11/2022 12:30 PM * Full Code Date Activated Date Inactivated Comments 04/09/2022 4:08 AM 04/10/2022 7:10 PM Care Teams Door Captain Relationship Specialty Start Date End Date Lakia Shore MD [address] [facility] [address] [place], [place] [address] PCP - General FAMILY PRACTICE 09/05/22
== END 2024-10-15 12:16 | disposition home or self-care (01) ==
PROVIDERS: Emergency Provider Emergency Medicine; PCP Family Medicine
DX: T87.89 Other complications of amputation stump (principal); E78.5 Hyperlipidemia, unspecified; D64.9 Anemia, unspecified; I12.9 Hypertensive chronic kidney disease with stage 1 through stage 4 chronic kidney disease, or unspecified chronic kidney disease; E11.22 Type 2 diabetes mellitus with diabetic chronic kidney disease; N18.9 Chronic kidney disease, unspecified; J45.909 Unspecified asthma, uncomplicated; W19.XXXA Unspecified fall, initial encounter
CPT/HCPCS: 73564; 99283

== ENCOUNTER 2025-01-03 07:45 | Outpatient (CLI) | payer MEDICARE, MEDICAID, SELFPAY ==
--- OUTSIDE RECORDS SUMMARY | 2025-01-03 07:51 | XMS_ITS ---
Author Organization 1 OF George keene [facility] Address [address] [employer] [address] [place] [address] Care Team Providers Care Academy Education Director Name Role Phone Lakia Shore Primary Care Provider Rebeca Barrera Unavailable [phone] REASON FOR VISIT DFC (Diabetic foot care) Encounters Encounter Location Date Provider Diagnosis 1 OF George Marte DPM [facility] [address] [employer] [address] [place] [address] 04/25/2024 Rebeca Sparrow Onychogryphosis L60. 2 ; Type 2 diabetes mellitus with diabetic polyneuropathy, unspecified whether usp insulin use E11.42 and Callus of foot [...] diabetic polyneuropathy, unspecified whether usp insulin use (ICD-10 - E11.42) 04/25/2024 Callus [...] Detail Notes PALLIATIVE FOOT CARE: Callus paring: (19016) Si ngle callus as noted above reduced with a sterile scalpel blade, Nail debride (14512): Debridement of fiv e or less mycotic and/or hypertrophic nails, utilizing manual and electric debridement the affected nails were reduced the nails in length and thickness with curettage of debris from nail margins performed as needed. Nail thickness reduced by:, 10% Progress Notes * Linda ROBBINSOB:1955 (69 yo M)Acc No.[id number]:04/25/2024 Progress Note Patient: Bradly DUFFY Provider: Jose Martin Sparrow DPM :1955 A ge:68 Y S ex:Male Date:04/25/2024 Address:[address] [place] [address] Pcp:Lakia Shore Subjective: * Chief Complaints: * 1 . DFC (Diabetic foot care). * HPI: M A assisting with visit:: HPI/Rooming: . ..... P [facility] reason for visit:: Diabetic Foot Care: 6 [...] P ALLIATIVE FOOT CARE:: Callus paring: ( 31069) Single callus as noted above reduced with a sterile scalpel blade,. Nail debride (06831): D ebridement of five or less mycotic and/or hypertrophic nails, utilizing manual and electric debridement the affected nails were reduced the nails in length and thickness with curettage of debris from nail margins performed as needed. Nail thickness reduced by:, 10%. * Procedure Codes: 1 1055 TRIM SKIN LESION, Modifiers: Q7 , 05155 DEBRIDE NAIL, 1-5, Modifiers: Q7 , 59 * Follow Up: 9 -10 weeks or contact office PRN with any concerns. * Images: * Electronic signature of Radha Sparrow DPM on 01/03/2025 at 07:50 AM CDT Sign off status: Pending * Provider: Jose Martin Sparrow DPM Date: 0 04/25/2024 Generated for Austin sprague/Karlag/eTransmitting on: 0 01/03/2025 07:50 AM CDT History and Physical Notes * [...]
--- OUTSIDE RECORDS SUMMARY | 2025-01-03 07:51 | XMS_ITS ---
Author Organization [address] [facility] Address [address] [place] [address] Care Team Providers Care Insulation Cutter And Former Name Role Phone Lakia Shore Primary Care Provider Rebeca Barrera Unavailable [phone] REASON FOR VISIT DFC (Diabetic foot care) Encounters Encounter Location Date Provider Diagnosis 1 OF [facility] [address] [place] [address] 07/10/2024 Rebeca Sparrow Onychogryphosis L60. 2 ; Type 2 diabetes mellitus with diabetic polyneuropathy, unspecified whether correction insulin use E11.42 and Callus of foot [...] diabetes mellitus with diabetic polyneuropathy, unspecified whether correction insulin use (ICD-10 - E11.42) 07/10/2024 Callus [...] Detail Notes PALLIATIVE FOOT CARE: Callus paring: (65675) Si ngle callus as noted above reduced with a sterile scalpel blade, Nail debride (23227): Debridement of fiv e or less mycotic and/or hypertrophic nails, utilizing manual and electric debridement the affected nails were reduced the nails in length and thickness with curettage of debris from nail margins performed as needed. Nail thickness reduced by:, 10% Progress Notes * Linda ROBBINSOB:1955 (69 yo M)Acc No.[id number]:07/10/2024 Progress Note Patient: Bradly DUFFY Provider: Jose Martin Sparrow DPM :1955 A ge:68 Y S ex:Male Date:07/10/2024 Address:[address] [place] [address] Pcp:Lakia Shore Subjective: * Chief Complaints: * [...] mellitus with diabetic polyneuropathy, unspecified whether terminal computer operator insulin use - E11.42 (Primary) 3 . C allus of foot - L84 Plan: * Treatment: * Procedures: P ALLIATIVE FOOT CARE:: Callus paring: ( 97912) Single callus as noted above reduced with a sterile scalpel blade,. Nail debride (81971): D ebridement of five or less mycotic and/or hypertrophic nails, utilizing manual and electric debridement the affected nails were reduced the nails in length and thickness with curettage of debris from nail margins performed as needed. Nail thickness reduced by:, 10%. * Procedure Codes: 1 1055 TRIM SKIN LESION, Modifiers: Q7 , 33745 DEBRIDE NAIL, 1-5, Modifiers: Q7 , 59 * Follow Up: 9 -10 weeks or contact office PRN with any concerns. * Images: * Electronic signature of Radha Sparrow DPM on 01/03/2025 at 07:51 AM CDT Sign off status: Pending * Provider: Jose Martin Sparrow DPM Date: 09/09/2023 Generated for Austin sprague/Faxing/eTransmitting on: 0 01/03/2025 07:51 AM CDT History and Physical Notes * [...]
--- OUTSIDE RECORDS SUMMARY | 2025-01-03 07:51 | XMS_ITS | Clinical Summary ---
Author Organization [facility] Address [address] [place] [address] Phone Care Team Providers Care Forestry Instructor Name Role Phone Lakia Shore MD Primary Care Provider Allergies No known active allergies Medications amLODIPine (NORVASC) 10 MG tablet Take 10 mg by mouth 1 (one) time each day Active aspirin (ST NATALI) 81 MG EC tablet Take 81 mg by mouth 1 (one) time each day Active atorvastatin (LIPITOR) 40 MG tablet Take 40 mg by mouth every night Active brimonidine-diogenes olol (COMBIGAN) 0.2-0.5 % ophthalmic solution Administer 1 drop into both eyes every 12 (twelve) hours Active ferrous sulfate 325 (65 Fe) MG EC tablet Take 325 mg by mouth 2 (two) times a day before meals Active hydroCHLOROthia zide (HYDRODIURIL) 25 MG tablet Take 25 mg [...] at Not on file Legal Sex Male 10:35 AM MDT Gender Identity Not on file Sexual Orientation Not on file Last Filed Vital Signs Vital Sign Reading Time Taken Comments Blood Pressure 129/71 09/19/2023 1:23 PM AUTOMATIC TRANSMISSION MECHANIC Pulse 92 09/19/2023 1:23 PM AUTOMATIC TRANSMISSION MECHANIC Temperature - - Respiratory Rate - - Oxygen Saturation - - Inhaled Oxygen Concentration - - Weight 85.3 kg (188 lb) 09/19/2023 1:23 PM AUTOMATIC TRANSMISSION MECHANIC Height 172.7 cm (5' 8 ) 09/19/2023 1:23 PM AUTOMATIC TRANSMISSION MECHANIC Body Mass Index 28.59 09/19/2023 1:23 PM AUTOMATIC TRANSMISSION MECHANIC Plan of Treatment Health Maintenance Due Date Last Done Comments Diabetic Foot Exam 11/16/1967 Ophthalmology Exam 11/16/1967 Pneumococcal PPSV23/PCV13 65 + Years / High and Highest Risk (1 of 5 - PCV) 1976 Influenza Vaccine (Season Ended) 2025 Insurance PM INTERFACED INSURANCE [place] [phone] [facility] Care Teams Forestry Instructor Relationship Specialty Start Date End Date Lakia Shore MD [address] [place] [phone] PCP - General 08/24/22
--- OUTSIDE RECORDS SUMMARY | 2025-01-03 07:51 | XMS_ITS ---
Author Organization 1 OF George keene [facility] Address [address] [place] [address] Care Team Providers Care Soils Analyst Name Role Phone Lakia Shore Primary Care Provider Rebeca Barrera Unavailable [phone] REASON FOR VISIT DFC (Diabetic foot care) [...] Date Provider Diagnosis 1 OF George Marte [facility] [address] [place] [address] 05/01/2024 Rebeca Sparrow Onychogryphosis L60. 2 ; Type 2 diabetes mellitus with diabetic polyneuropathy, unspecified whether reel stripper insulin use E11.42 and Callus of foot [...] diabetes mellitus with diabetic polyneuropathy, unspecified whether reel stripper insulin use (ICD-10 - E11.42) 05/01/2024 Callus [...] Detail Notes PALLIATIVE FOOT CARE: Callus paring: (78981) Si ngle callus as noted above reduced with a sterile scalpel blade, Nail debride (27095): Debridement of fiv e or less mycotic and/or hypertrophic nails, utilizing manual and electric debridement the affected nails were reduced the nails in length and thickness with curettage of debris from nail margins performed as needed. Nail thickness reduced by:, 10% Progress Notes * ROSENDO HaiNikkiOB:1955 (68 yo M)Acc No.[id number]:05/01/2024 Progress Note Patient: Bradly DUFFY Provider: Jose Martin Sparrow DPM :1955 A ge:68 Y S ex:Male Date:05/01/2024 Address:[address] [place], [place] [id number] Pcp:Lakia Shore Subjective: * Chief Complaints: * [...] diabetes mellitus with diabetic polyneuropathy, unspecified whether reel stripper insulin use - E11.42 (Primary) 3 . C allus of foot - L84 Plan: * Treatment: * Procedures: P ALLIATIVE FOOT CARE:: Callus paring: ( 43297) Single callus as noted above reduced with a sterile scalpel blade,. Nail debride (03305): D ebridement of five or less mycotic and/or hypertrophic nails, utilizing manual and electric debridement the affected nails were reduced the nails in length and thickness with curettage of debris from nail margins performed as needed. Nail thickness reduced by:, 10%. * Procedure Codes: 1 1055 TRIM SKIN LESION, Modifiers: Q7 04444 DEBRIDE NAIL, 1-5, Modifiers: Q7 , 59 * Follow Up: 9 -10 weeks or contact office PRN with any concerns. * Images: * Sign off status: Completed true * Provider: Jose Martin Sparrow DPM Date: 0 05/01/2024 Generated for Austin sprague/Baljeet/Margaux on: 0 01/03/2025 07:50 AM CDT History [...]
--- OUTSIDE RECORDS SUMMARY | 2025-01-03 07:51 | XMS_ITS | Patient Health Record ---
Author Organization 1 OF George keene [facility] Address [address] [place] [address] Care Team Providers Care Chief Clerk Name Role Phone Lakia Shore Primary Care Provider Rebeca Barrera Unavailable [phone] Allergies No Known Allergies Reason For Referral [...] Problem Status W/U Status Risk Notes Problem 19495973 Gait instability (R26.81) Active confirmed Problem 295517037 Skin ulcer of toe of left foot with fat layer exposed (L97.522) Active confirmed Problem 95788683 Type 2 diabetes mellitus with diabetic polyneuropathy, unspecified whether alf insulin use (E11.42) Active confirmed Vital Signs Height 68 in 05/01/2024 Weight 194 lbs 05/01/2024 BMI 29.49 kg/m2 05/01/2024 Encounters Encounter Location Date Provider Diagnosis 1 OF [facility] [address] [place] [address] 01/18/2024 Rebeca Sparrow Onychogryphosis L60. 2 ; Type 2 diabetes mellitus with diabetic polyneuropathy, unspecified whether oysterman insulin use E11.42 and Callus of foot L84 1 OF George Marte [facility] [address] [place] [address] 01/18/2024 Rebeca Sparrow Type 2 diabetes arun itus with diabetic polyneuropathy, unspecified whether oysterman insulin use E11.42 1 OF George Marte [facility] [address] [place] [address] 05/01/2024 Rebeca Sparrow Onychogryphosis L60. 2 ; Type 2 diabetes mellitus with diabetic polyneuropathy, unspecified whether oysterman insulin use E11.42 and Callus of foot L84 1 OF George Marte [facility] [address] [place] [address] 01/05/2024 Rebeca Sparrow Assessments Encounter Date Diagnosis (ICD Code) Assessment Notes Treatment Notes Treatment Clinical Notes Section Notes 01/18/2024 Onychogryphosis (ICD-10 - L60.2) Considering the associated comorbidities and physical exam findings today, this patient is at substantial risk of developing serious foot complications in the absence of regular and professional palliative foot care. 01/18/2024 Type 2 diabetes mellitus with diabetic polyneuropathy, unspecified whether alf insulin use (ICD-10 - E11.42) 05/01/2024 Onychogryphosis (ICD-10 - L60.2) Considering the associated comorbidities and physical exam findings today, this patient is at substantial risk of developing serious foot complications in the absence of regular and professional palliative foot care. 05/01/2024 Type 2 diabetes mellitus with diabetic polyneuropathy, unspecified whether alf insulin use (ICD-10 - E11.42) 01/18/2024 Type 2 diabetes mellitus with diabetic polyneuropathy, unspecified whether oysterman insulin use (ICD-10 - E11.42) 01/18/2024 Callus of foot (ICD-10 - L84) 05/01/2024 Callus of foot (ICD-10 - L84) Plan Of Treatment No Information Insurance Providers Payer Name Payer Address Payer Phone Subscriber Number Group Number Insured Name Patient Relationship to Insured Coverage Start Date Coverage End Date [employer] Medicare [address] [address] [place] [address] [phone] [id number] Bradly Burnett Self - patient is the insured [facility] 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
[2025-01-03 09:22] LABS: Albumin Level 4.3 g/dL (3.5-5.1); Anion Gap 8 mmol/L (4-12); Blood Urea Nitrogen 24 mg/dL (9-20); Carbon Dioxide 24 mmol/L (22-30); Chloride 103 mmol/L (98-107); Estimated Glomerular Filt Rate 42; Glucose 183 mg/dL (65-110); Phosphorus 3.2 mg/dL (2.5-4.5); Potassium 4.7 mmol/L (3.4-5.0); Sodium 135 mmol/L (137-145)
[2025-01-03 09:44] LABS: Creatinine Urine 21.3 mg/dL; Total Protein Urine Random 45 mg/dL; Ur Ttl Prot Creatinine Ratio 2.11 mg/mg (0-0.20)
== END 2025-01-03 07:46 | disposition home or self-care (01) ==
PROVIDERS: PCP Family Medicine; Visit Provider Internal Medicine Nephrology
DX: I12.9 Hypertensive chronic kidney disease with stage 1 through stage 4 chronic kidney disease, or unspecified chronic kidney disease (principal); E11.22 Type 2 diabetes mellitus with diabetic chronic kidney disease; N18.31 Chronic kidney disease, stage 3a
CPT/HCPCS: 36415; 80069; 82570; 84156

== ENCOUNTER 2025-04-25 07:44 | Outpatient (CLI) | payer MEDICARE, MEDICAID, SELFPAY ==
--- OUTSIDE RECORDS SUMMARY | 2024-04-11 04:40 | XMS_ITS ---
Author Organization 1 OF George keene [facility] Address [address] [place] [address] Care Team Providers Care Websphere Portal Architect Name Role Phone Lakia Shore Primary Care Provider Rebeca Barrera Unavailable [phone] REASON FOR VISIT DFC (Diabetic foot care) Encounters Encounter Location Date Provider Diagnosis 1 OF George Marte [facility] [address] [place] [address] 04/11/2024 Rebeca Sparrow Onychogryphosis L60. 2 ; Type 2 diabetes mellitus with diabetic polyneuropathy, unspecified whether marine designer insulin use E11.42 and Callus of foot L84 Assessments Encounter Date Diagnosis (ICD Code) Assessment Notes Treatment Notes Treatment Clinical Notes Section Notes 04/11/2024 Onychogryphosis (ICD-10 - L60.2) Considering the associated comorbidities and physical exam findings today, this patient is at substantial risk of developing serious foot complications in the absence of regular and professional palliative foot care. 04/11/2024 Type 2 diabetes mellitus with diabetic polyneuropathy, unspecified whether prison insulin use (ICD-10 - E11.42) 04/11/2024 Callus of foot (ICD-10 - L84) Plan Of Treatment Treatment Notes Assessment Notes Onychogryphosis Considering the asso ciated comorbidities and physical exam findings today, this patient is at substantial risk of developing serious foot complications in the absence of regular and professional palliative foot care. Next Appt Details Follow Up: 9-10 weeks or con tact office PRN with any concerns., Reason: Provider Name:Rebeca Sparrow, 06/11/2025 10:00:00 AM, [address], [place], [address], Procedure Notes * Category Sub-Category Detail Notes PALLIATIVE FOOT CARE: Callus paring: (88758) Si ngle callus as noted above reduced with a sterile scalpel blade, Nail debride (35031): Debridement of fiv e or less mycotic and/or hypertrophic nails, utilizing manual and electric debridement the affected nails were reduced the nails in length and thickness with curettage of debris from nail margins performed as needed. Nail thickness reduced by:, 10% Progress Notes * Linda ORBBINSOB:1955 (69 yo M)Acc No.[id number]:04/11/2024 Progress Note Patient: Bradly DUFFY Provider: Jose Martin Sparrow DPM :1955 A ge:68 Y S ex:Male Date:04/11/2024 Address:[address] [place], [place] [id number] Pcp:Lakia Shore Subjective: * Chief Complaints: * 1 . DFC (Diabetic foot care). * HPI: M A assisting with visit:: HPI/Rooming: . ..... P [facility] reason for visit:: Diabetic Foot Care: [age] y/o diabetic male RTO for diabetic foot care. Patient reports no acute issues with nails or calluses today. R eports last HA1c of . * Medical History: Objective: * Vitals: * Examination: G eneral Examination: Constitutional / Appearance: N o acute distress , Well nourished, Appropriate personal hygiene. Mental status: C ooperative, Oriented to person, place and time, Mood and affect: normal, Judgement and intellect: normal with appropriate response to questions. Ambulatory assistive device: c ane. Shoes today: X XXXXX. L ower Extremity VASCULAR: : Pulses: L eft: DP and PT diminished. Temperature gradient: Slightly decreased from proximal to distal, left. Pedal hair: a bsent , left. Venous insufficiency edema: m ild, left ankle and foot.? Capillary refill at distal toes less than 5 seconds, left foot. L ower Extremity DERM: : Skin: r elatively dry, no open sores, no suspicious lesions, without interdigital maceration, left foot. Nails: N ail plates on the left foot are elongated, relatively thickened, dystrophic, discolored, with subungual debris.. Hyperkeratotic lesions LEFT foot: p lantar hallux. ? L ower Extremity NEURO: : General sensation appears diminished, left. Muscle tone diminished, left. Monofilament test (10 gram pressure) E xam of 08/31/2023:?revealed intact sensation to, entire foot, left foot. Vibration perception: E xam of 08/31/2023: n oted intact per evaluation with 128Hz tuning fork applied to distal hallux compared to ipsilateral medial malleolus @ left foot. L ower Extremity MSK: : Gait S low gait with cane. Foot type: L eft lower extremity exhibits p es planus foot type with decreased medial arch. Muscle strength: d iminished, all 4 quadrants tested, left. Left lower extremity inspection and palpation: N o palpable masses or nodules noted. Slightly decreased range of motion noted to the first metatarsophalangeal joint.. Foot deformities: L T foot:hammertoes, 2nd-5th. Assessment: * Assessment: 1. O nychogryphosis - L60.2 2 . T ype 2 diabetes mellitus with diabetic polyneuropathy, unspecified whether marine designer insulin use - E11.42 (Primary) 3 . C allus of foot - L84 Plan: * Treatment: * Procedures: P ALLIATIVE FOOT CARE:: Callus paring: ( 09486) Single callus as noted above reduced with a sterile scalpel blade,. Nail debride (39342): D ebridement of five or less mycotic and/or hypertrophic nails, utilizing manual and electric debridement the affected nails were reduced the nails in length and thickness with curettage of debris from nail margins performed as needed. Nail thickness reduced by:, 10%. * Procedure Codes: 1 1055 TRIM SKIN LESION, Modifiers: Q7 , 58890 DEBRIDE NAIL, 1-5, Modifiers: Q7 , 59 * Follow Up: 9 -10 weeks or contact office PRN with any concerns. * Images: * Electronic signature of Radha madden SALMA Sparrow on 04/25/2025 at 07:49 AM CDT Sign off status: Pending * Provider: Jose Martin Sparrow DPM Date: 0 04/11/2024 Generated for Austin sprague/Baljeet/Margaux on: 0 04/25/2025 07:49 AM CDT History and Physical Notes * HPI (History of Present Illness) Category Sub-Category Detail Notes Category Not es Primary reason for visit: Diabetic Foot Care: 68 y/o diabetic male RTO for diabetic foot care. Patient reports no acute issues with nails or calluses today. Reports last HA1c of MA assisting with visit: HPI/Rooming: ..... Examination Category Sub-Category Detail Notes Category Not es General Examination Mental status: Cooperative, Oriented to person, place and time, Mood and affect: normal, Judgement and intellect: normal with appropriate response to questions Shoes today: XXXXXX Ambulatory assistive device: cane Constitutional / Appearance: No acute di stress , Well nourished, Appropriate personal hygiene Lower Extremity VASCULAR: Venous insufficiency e dudley: mild, left ankle and foot Pulses: Left: DP and PT dimi nished Temperature gradient: Slightly decreased from proximal to distal, left Pedal hair: absent , left Capillary refill at distal toes less anton n 5 seconds, left foot Lower Extremity NEURO: Monofilament test (10 gram pressure) Exam of 08/31/2023: revealed intact sensation to, entire foot, left foot Vibration perception: Exam of 08/31/2023 : noted intact per evaluation with 128Hz tuning fork applied to distal hallux compared to ipsilateral medial malleolus @ left foot General sensation appears diminished, le ft Muscle tone diminished, left Lower Extremity MSK: Muscle strength: diminished, all 4 quadrants tested, left Foot type: Left lower extremity exhibits pes planus foot type with decreased medial arch Foot deformities: LT foot: hammertoes, 2nd-5th Left lower extremity inspect ion and palpation: No palpable masses or nodules noted. Sli ghtly decreased range of motion noted to the first metatarsophalangeal joint. Gait Slow gait with cane Lower Extremity DERM: Skin: relatively dry, no open sores, no suspicious lesions, without interdigital maceration, left foot Nails: Nail plates on the l eft foot are elongated, relatively thickened, dystrophic, discolored, with subungual debris. Hyperkeratotic lesions LEFT foot: planta r hallux
--- OUTSIDE RECORDS SUMMARY | 2024-04-25 04:40 | XMS_ITS ---
Author Organization 1 OF George keene [facility] Address [address] [place] [address] Care Team Providers Care Wet End Helper Name Role Phone Lakia Shore Primary Care Provider Rebeca Barrera Unavailable [phone] REASON FOR VISIT DFC (Diabetic foot care) Encounters Encounter Location Date Provider Diagnosis 1 OF George Marte [facility] [address] [place] [address] 04/25/2024 Rebeca Sparrow Onychogryphosis L60. 2 ; Type 2 diabetes mellitus with diabetic polyneuropathy, unspecified whether intermodal dispatcher insulin use E11.42 and Callus of foot L84 Assessments Encounter Date Diagnosis (ICD Code) Assessment Notes Treatment Notes Treatment Clinical Notes Section Notes 04/25/2024 Onychogryphosis (ICD-10 - L60.2) Considering the associated comorbidities and physical exam findings today, this patient is at substantial risk of developing serious foot complications in the absence of regular and professional palliative foot care. 04/25/2024 Type 2 diabetes mellitus with diabetic polyneuropathy, unspecified whether detention insulin use (ICD-10 - E11.42) 04/25/2024 Callus of foot (ICD-10 - L84) Plan [...] [address], [place], [address], Procedure Notes * Category Sub-Category Detail Notes PALLIATIVE FOOT CARE: Callus paring: (11608) Si ngle callus as noted above reduced with a sterile scalpel blade, Nail debride (45442): Debridement of fiv e or less mycotic and/or hypertrophic nails, utilizing manual and electric debridement the affected nails were reduced the nails in length and thickness with curettage of debris from nail margins performed as needed. Nail thickness reduced by:, 10% Progress Notes * ROSENDO LindaOB:1955 (69 yo M)Acc No.[id number]:04/25/2024 Progress Note Patient: Bradly DUFFY Provider: Jose Martin Sparrow DPM :1955 A ge:68 Y S ex:Male Date:04/25/2024 Address:[address] [place], [place] [id number] Pcp:Lakia Shore Subjective: * Chief Complaints: * 1 . DFC (Diabetic foot care). * HPI: M A assisting with visit:: HPI/Rooming: . ..... [facility] reason for visit:: Diabetic Foot [...] diabetes mellitus with diabetic polyneuropathy, unspecified whether intermodal dispatcher insulin use - E11.42 (Primary) 3 . C allus of foot - L84 Plan: * Treatment: * Procedures: P ALLIATIVE FOOT CARE:: Callus paring: ( 25200) Single callus as noted above reduced with a sterile scalpel blade,. Nail debride (40061): D ebridement of five or less mycotic and/or hypertrophic nails, utilizing manual and electric debridement the affected nails were reduced the nails in length and thickness with curettage of debris from nail margins performed as needed. Nail thickness reduced by:, 10%. * Procedure Codes: 1 1055 TRIM SKIN LESION, Modifiers: Q7 , 72897 DEBRIDE NAIL, 1-5, Modifiers: Q7 , 59 * Follow Up: 9 -10 weeks or contact office PRN with any concerns. * Images: * Electronic signature of Radha madden SALMA Sparrow on 04/25/2025 at 07:49 AM CDT Sign off status: Pending * Provider: Jose Martin Sparrow DPM Date: 0 04/25/2024 Generated for Austin sprague/Baljeet/Margaux on: 0 04/25/2025 [...]
--- OUTSIDE RECORDS SUMMARY | 2024-07-10 04:40 | XMS_ITS ---
Author Organization 1 OF George keene [facility] Address [address] [place] [address] Care Team Providers Care Executive Marketing Assistant Name Role Phone Lakia Shore Primary Care Provider Rebeca Barrera Unavailable [phone] REASON FOR VISIT DFC (Diabetic foot care) Encounters Encounter Location Date Provider Diagnosis 1 OF George Marte [facility] [address] [place] [address] 07/10/2024 Rebeca Sparrow Onychogryphosis L60. 2 ; Type 2 diabetes mellitus with diabetic polyneuropathy, unspecified whether computer terminal operator insulin use E11.42 and Callus of foot L84 Assessments Encounter Date Diagnosis (ICD Code) Assessment Notes Treatment Notes Treatment Clinical Notes Section Notes 07/10/2024 Onychogryphosis (ICD-10 - L60.2) Considering the associated comorbidities and physical exam findings today, this patient is at substantial risk of developing serious foot complications in the absence of regular and professional palliative foot care. 07/10/2024 Type 2 diabetes mellitus with diabetic polyneuropathy, unspecified whether custodial insulin use (ICD-10 - E11.42) 07/10/2024 Callus of foot (ICD-10 - L84) Plan [...] Name:Rebeca Sparrow, 06/11/2025 10:00:00 AM, [address], [place], [address], Procedure Notes * Category Sub-Category Detail Notes PALLIATIVE FOOT CARE: Callus paring: (70332) Si ngle callus as noted above reduced with a sterile scalpel blade, Nail debride (87684): Debridement of fiv e or less mycotic and/or hypertrophic nails, utilizing manual and electric debridement the affected nails were reduced the nails in length and thickness with curettage of debris from nail margins performed as needed. Nail thickness reduced by:, 10% Progress Notes * ROSENDO LindaOB:1955 (69 yo M)Acc No.[id number]:07/10/2024 Progress Note Patient: Bradly DUFFY Provider: Jose Martin Sparrow DPM :1955 A ge:68 Y S ex:Male Date:07/10/2024 Address:[address] [place], [place] [id number] Pcp:Lakia Shore Subjective: * Chief Complaints: * 1 . DFC (Diabetic foot care). * HPI: P rimary reason for visit:: Diabetic Foot Care: 8 [...] eft: DP and PT diminished. Temperature gradient: d ecreased from proximal to distal, left. Pedal hair: a bsent , left. Venous insufficiency edema: m inimal, left ankle and foot.? Capillary refill at [...] diabetes mellitus with diabetic polyneuropathy, unspecified whether computer terminal operator insulin use - E11.42 (Primary) 3 . C allus of foot - L84 Plan: * Treatment: * Procedures: P ALLIATIVE FOOT CARE:: Callus paring: ( 76245) Single callus as noted above reduced with a sterile scalpel blade,. Nail debride (53441): D ebridement of five or less mycotic and/or hypertrophic nails, utilizing manual and electric debridement the affected nails were reduced the nails in length and thickness with curettage of debris from nail margins performed as needed. Nail thickness reduced by:, 10%. * Procedure Codes: 1 1055 TRIM SKIN LESION, Modifiers: Q7 , 26840 DEBRIDE NAIL, 1-5, Modifiers: Q7 , 59 * Follow Up: 9 -10 weeks or contact office PRN with any concerns. * Images: * Electronic signature of Radha Sparrow DPM on 04/25/2025 at 07:49 AM CDT Sign off status: Pending * Provider: Jose Martin Sparrow DPM Date: 09/09/2023 Generated for Austin Grigsby on: 0 04/25/2025 07:49 AM CDT History and Physical Notes * HPI (History of Present Illness) Category Sub-Category Detail Notes Category Not es Primary reason for visit: Diabetic Foot Care: 68 y/o diabetic male RTO for diabetic foot care. Patient reports no acute issues with nails or calluses today. Reports last HA1c of Examination Category Sub-Category Detail Notes Category Not es General Examination Mental status: Cooperative, Oriented to person, place and time, Mood and affect: normal, Judgement and intellect: normal with appropriate response to questions Shoes today: XXXXXX Ambulatory assistive device: cane Constitutional / Appearance: No acute di stress , Well nourished, Appropriate personal hygiene Lower Extremity VASCULAR: Venous insufficiency e dudley: minimal, left ankle and foot Pulses: Left: DP and PT dimi nished Temperature gradient: decreased from pro ximal to distal, left Pedal hair: absent , [...]
--- OUTSIDE RECORDS SUMMARY | 2025-04-25 07:49 | XMS_ITS | Patient Health Record ---
Author Organization 1 OF George keene DPM [facility] Address [address] [facility] [address] [place] [address] Care Team Providers Care Catalyst Unit Operator Name Role Phone Lakia Shore Primary Care Provider Rebeca Barrera Unavailable [phone] Allergies No Known Allergies Reason For Referral No Information Medications Medication SIG (Take, Route, Fr equency, Duration) Notes Start Date End Date Status metFORMIN HCl Active Ciclopirox 8 % 1 application to aff ected toenails daily. Every weekend, remove medicine with nail kazakh remover. Topical Once a day; Duration: 120 days 04/01/2025 Active Metoprolol Succinate Active amLODIPine Besylate Active Aspirin Active Atorvastatin Calcium Active Brimonidine Tartrate Active Januvia Active Social History Tobacco Use: Social History Observation Description Date Details (start date - stop date) Never Smoker NA - NA Tobacco Use/Smoking Question Answer Notes Are you a nonsmoker Problems Problem Type SNOMED Code ICD Code Onset Dates Problem Status W/U Status Risk Notes Problem Abnormal gait (85976995) Gait instability (R26.81) Active confirmed Problem Skin ulcer of toe of left foot with fat layer exposed (L97.522) Active confirmed Problem Polyneuropathy due to type 2 diabetes mellitus (581143757) Type 2 diabetes mellitus with diabetic polyneuropathy, unspecified whether shelter insulin use (E11.42) Active confirmed Vital Signs Height 68 in 04/01/2025 Weight 204 lbs 04/01/2025 BMI 31.01 kg/m2 04/01/2025 Encounters Encounter Location Date Provider Diagnosis 1 OF George Campbell Estuardo [facility] [address] [address] 05/01/2024 Rebeca Sparrow Onychogryphosis L60. 2 ; Type 2 diabetes mellitus with diabetic polyneuropathy, unspecified whether equipment operator intermodal yard insulin use E11.42 and Callus of foot L84 1 OF George Marte [facility] [address] [address] 04/01/2025 Rebeca Sparrow Onychogryphosis L60. 2 ; Type 2 diabetes mellitus with diabetic polyneuropathy, unspecified whether shelter insulin use E11.42 ; Callus of foot L84 and Dermatophytosis, nail B35.1 Assessments Encounter Date Diagnosis (ICD Code) Assessment Notes Treatment Notes Treatment Clinical Notes Section Notes 05/01/2024 Onychogryphosis (ICD-10 - L60.2) Considering the associated comorbidities and physical exam findings today, this patient is at substantial risk of developing serious foot complications in the absence of regular and professional palliative foot care. 04/01/2025 Onychogryphosis (ICD-10 - L60.2) Considering the associated comorbidities and physical exam findings today, this patient is at substantial risk of developing serious foot complications in the absence of regular and professional palliative foot care. 04/01/2025 Callus of foot (ICD-10 - L84) 05/01/2024 Type 2 diabetes mellitus with diabetic polyneuropathy, unspecified whether equipment operator intermodal yard insulin use (ICD-10 - E11.42) 04/01/2025 Type 2 diabetes mellitus with diabetic polyneuropathy, unspecified whether equipment operator intermodal yard insulin use (ICD-10 - E11.42) 04/01/2025 Dermatophytosis, nail (ICD-10 - B35.1) Discussed diagnosis of onychomycosis versus onychogryphosis. Treatment options including topical and/or oral medications vs not treating the infection at all were discussed. Advised fungus is contagious and can spread to other nails or family members. The patient was informed that topical treatments can be effective for mild cases. I discussed treatment with oral antifungal medication including potential risks and side effects associated with the medication. Advised treatment with oral anti-fungal medication requires a blood test to insure no pre-existing liver or kidney condition exists. Patient was advised it may take 4-6 months before significant visible improvement is apparent and 12-18 months of the medication may be necessary to resolve the infection. The patient was advised no guarantee with any treatment. All questions were answered and the patient prefers to try treatment with topical antifungal treatment. I recommended Ciclopirox, applied daily for at least 3-4 months, before expecting any significant improvement. Advised 12-18 months may be necessary for complete resolution if it seems to be working. 05/01/2024 Callus of foot (ICD-10 - L84) Plan Of Treatment Next Appt Details Provider Name:Rebeca Sparrow, 06/11/2025 10:00:00 AM, [address] [facility] [address], [place], [address], Insurance Providers Payer Name Payer Address Payer Phone Subscriber Number Group Number Insured Name Patient Relationship to Insured Coverage Start Date Coverage End Date [employer] Medicare [address] [address] [place] [address] [phone] [id number] Bradly Burnett Self - patient [facility] the insured [facility] 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
--- OUTSIDE RECORDS SUMMARY | 2025-04-25 07:50 | XMS_ITS | Clinical Summary ---
Author Organization [facility] Address [address] [place] [address] Phone Care Team Providers Care Senior Quality Assurance Engineer Name Role Phone Lakia Shore MD Primary [...] Comments Blood Pressure 129/71 09/19/2023 1:23 PM MOTION PICTURE DIRECTOR Pulse 92 09/19/2023 1:23 PM MOTION PICTURE DIRECTOR Temperature - - Respiratory Rate - - Oxygen Saturation - - Inhaled Oxygen Concentration - - Weight 85.3 kg (188 lb) 09/19/2023 1:23 PM MOTION PICTURE DIRECTOR Height 172.7 cm (5' 8) 09/19/2023 1:23 PM MOTION PICTURE DIRECTOR Body Mass Index 28.59 09/19/2023 1:23 PM MOTION PICTURE DIRECTOR Plan of Treatment Health Maintenance Due Date Last Done Comments Diabetic Foot Exam 11/16/1967 Ophthalmology Exam 11/16/1967 Pneumococcal PPSV23/PCV13 65 + Years / High and Highest Risk (1 of 5 - PCV) 1976 Influenza Vaccine (#1) 2025 Insurance PM INTERFACED INSURANCE [place] [id number] [place] [address] HEALTH Care Teams Senior Quality Assurance Engineer Relationship Specialty Start Date End Date Lakia Shore MD [address] [address] PCP - General 08/24/22
[2025-04-25 08:59] LABS: Hematocrit 34.5 % (42.0-52.0); Hemoglobin 11.1 g/dL (14.0-18.0); Immature Granulocyte Percent A 0.5 % (0-0.5); Lymphocytes Absolute Auto 2.56 K/mm3 (0.9-3.2); Mean Corpuscular HGB Conc 32.2 g/dl (32-36); Mean Corpuscular Hemoglobin 26.3 pg (26-34); Mean Corpuscular Volume 81.8 fl (80-100); Nucleated Red Blood Cells Absolute Auto 0.000 K/mm3 (0.0-0.012); Nucleated Red Blood Cells Perc 0.0 % (0.0-0.2); Platelet Count Result 376 k/mm3 (150-375); Red Blood Count 4.22 M/mm3 (4.6-6.20); White Blood Count 10.9 K/mm3 (4.5-10.0)
[2025-04-25 09:02] LABS: Iron 72 ug/dL (49-181)
[2025-04-25 09:11] LABS: Albumin Level 4.0 g/dL (3.5-5.1); Anion Gap 7 mmol/L (4-12); Blood Urea Nitrogen 21 mg/dL (9-20); Calcium 9.0 mg/dL (8.4-10.2); Carbon Dioxide 23 mmol/L (22-30); Chloride 97 mmol/L (98-107); Estimated Glomerular Filt Rate 46; Glucose 154 mg/dL (65-110); Percent Iron Saturation 27 % (20-50); Potassium 4.5 mmol/L (3.4-5.0); Sodium 127 mmol/L (137-145)
[2025-04-25 09:14] LABS: Alanine Aminotransferase 38 U/L (6-50); Albumin Level 4.0 g/dL (3.5-5.1); Alkaline Phosphatase 67 U/L (38-126); Anion Gap 7 mmol/L (4-12); Aspartate Amino Transferase 41 U/L (17-59); Bilirubin,Total 0.2 mg/dL (0.2-1.3); Blood Urea Nitrogen 20 mg/dL (9-20); Calcium 8.9 mg/dL (8.4-10.2); Carbon Dioxide 23 mmol/L (22-30); Chloride 97 mmol/L (98-107); Estimated Glomerular Filt Rate 46; Glucose 153 mg/dL (65-110); Magnesium 1.8 mg/dL (1.6-2.3); Potassium 4.5 mmol/L (3.4-5.0); Sodium 127 mmol/L (137-145); Total Protein 7.0 g/dL (6.3-8.2)
[2025-04-25 09:14] LABS: Hemoglobin A1C 7.9 % (<5.7)
[2025-04-25 09:22] LABS: Total Protein Urine Random 62 mg/dL; Ur Ttl Prot Creatinine Ratio 3.33 mg/mg (0-0.20)
[2025-04-25 09:31] LABS: Parathyroid Intact 66.4 pg/mL (14.5-75.2)
[2025-04-25 09:43] LABS: Ferritin 113.00 ng/mL (11.1-264)
[2025-04-25 09:45] LABS: MALB Creatinine Ratio 1320.1 mg/g (0-30)
[2025-04-25 10:08] LABS: Vitamin B12 748.0 pg/mL (239-931)
== END 2025-04-25 07:45 | disposition home or self-care (01) ==
PROVIDERS: PCP Family Medicine; Visit Provider Internal Medicine Nephrology
DX: R97.20 Elevated prostate specific antigen [PSA] (principal); D64.9 Anemia, unspecified; N28.9 Disorder of kidney and ureter, unspecified; E11.9 Type 2 diabetes mellitus without complications; E11.22 Type 2 diabetes mellitus with diabetic chronic kidney disease; N25.81 Secondary hyperparathyroidism of renal origin; E55.9 Vitamin D deficiency, unspecified; I12.9 Hypertensive chronic kidney disease with stage 1 through stage 4 chronic kidney disease, or unspecified chronic kidney disease; N18.32 Chronic kidney disease, stage 3b
CPT/HCPCS: 36415; 80053; 80069; 82043; 82306; 82570; 82607; 82728; 83036; 83540; 83550; 83735; 83970; 84156; 85025